=== PATIENT | male | born 1955 | race Caucasian/White ===

== ENCOUNTER → 2020-03-28 14:52 | Outpatient (BNVA) | payer MEDICARE, MEDICAID, SELFPAY | PROVIDERS: Family Provider Family Medicine; PCP Family Medicine; Visit Provider Specialist | DX: G40.909 Epilepsy, unspecified, not intractable, without status epilepticus (principal) | CPT/HCPCS: 99213 ==

== ENCOUNTER 2023-09-25 07:36 | Inpatient (IN) | payer MEDICARE, MEDICAID, SELFPAY ==
[2023-09-25] VITALS (11 sets, daily range): BP systolic 113–176; BP diastolic 66–95; PULSE 64–118; RESP 18–26; TEMP 36.6–37.3; O2SAT 83–94; BMI 35.9
--- NOTE | 2023-09-25 07:52 | CT_ITS ---
WS: [id number] CT HEAD NONCONTRAST HISTORY: AMS TECHNIQUE: Contiguous axial imaging performed through the brain in 2.5 mm imaging. Bone and soft tiss ue windows. Sagittal and coronal reformats reviewed. All CT scans at [facility] use at least one of these dose optimization techniques: automated exposure control; mA and/or kV adjustment per pa tient size (includes targeted exams where dose is matched to clinical indication); or iterative recon struction. DLP: 1164.18 mGy.cm COMPARISON: 05/17/2019 No acute intracranial hemorrhage, midline shift or mass effect. Moderate atrophy and small vessel ischemic disease. No prior infarct. Ventricles: Mild ventriculomegaly. No inferior displacement of the cerebellar tonsils. Paranasal sinuses: Mucoperiosteal thickening in the LEFT maxillary sinus. No air-fluid levels. Mastoid air cells: Well pneumatized. Calvarium and scalp: Skull is intact with no soft tissue edema or swelling. IMPRESSION: 1. No acute intracranial hemorrhage or edema. 2. Moderate atrophy and small vessel ischemic disease. 3. Mild ventriculomegaly on the basis of atrophy.
--- NOTE | 2023-09-25 07:52 | ECG_ITS ---
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 Measurements Intervals [place] Rate: 115 P: 12 GA: 170 QRS: -15 QRSD: 92 T: 17 QT: 344 QTc: 477 Interpretive Statements SINUS TACHYCARDIA LOW QRS VOLTAGE IN PRECORDIAL LEADS [QRS DEFLECTION < 1.0 mV IN CHEST LEADS] POSSIBLE ANTERIOR MYOCARDIAL INFARCTION , PROBABLY OLD [30 ms Q WAVE IN V3/V4, OR R < 0.2 mV IN V4] ABNORMAL RHYTHM ECG Compared to ECG 05/17/2019 20:01:17 Myocardial infarct finding now present Sinus bradycardia no longer present T-wave abnormality no longer present Possible ischemia no longer present Electronically Signed On 09-25-2023 16:03:17 SAMPLE WASHER by Man Zhang M.D. [email or web address] [email or web address] Pharmaceuticalscovenant medical center.[employer]/store/NU/[id number] pathak
--- NOTE | 2023-09-25 08:00 | W.ED.AMS ---
HPI - Altered Mental Status General: Chief Complaint: Altered Mental Status Stated Complaint: left leg pain, AMS Time Seen by Provider: 09/25/23 07:50 Source: patient Mode of arrival: ambulatory History of Present Illness: 68-year-old male presents emergency room complaining of bilateral lower extremity pain. Initially told the nurses he had left leg pain when I talk to his complaint of back pain and pain radiating down both legs. He states it has been chronic but worse lately. He also has bilateral leg swelling. EMS was initially called for a fall but when they came to see the patient he was sitting in a chair. He is tells me he is not normally on oxygen he has not required 3 L by nasal cannula to maintain oxygen sats in the low 90s. He denies fever. Denies chest pain or abdominal pain dysuria urgency or frequency he lives alone in an apartment. He does have a circuitry negative inspector that helps him occasionally. Symptoms began 3 to 4 days ago. MD complaint: altered mental status Onset (ago): day(s) (3-4) Severity: moderate Consistency of symptoms: Getting Worse Associated symptoms: Deny auditory hallucinations, visual hallucinations, delusions, depression, homicidal ideation, racing thoughts or suicidal ideation Review of Systems Const: Denies: fever(s) or chills Card: Denies: chest pain Resp: Denies: dyspnea GI: Denies: abdominal pain : Denies: dysuria, urinary frequency or urinary urgency Musc: Denies: neck pain or back pain Skin/Breast: Denies: rash Psych: Denies: depression, visual hallucinations, auditory hallucinations, suicidal ideation or homicidal ideation [facility] ED PFSH: Medical History Seizures H/O appendicitis Surgical History H/O foot surgery Family History Other CAD (coronary artery disease) Hypertension Physical Exam Const: COMMON NORMALS: no acute distress GENERAL APPEARANCE: cooperative and comfortable ORIENTATION/CONSCIOUSNESS: Yes awake HENMT: COMMON NORMALS: normocephalic, atraumatic and hearing grossly normal bilaterally HEAD & SCALP: normocephalic and atraumatic Resp: COMMON NORMALS: normal respiratory effort, No retractions, No use of accessory muscles and clear to auscultation bilaterally AUSCULTATION: clear to auscultation bilaterally Cardio: COMMON NORMALS: regular rate, regular rhythm and No murmurs present (Cardio) RATE: regular rate RHYTHM: regular rhythm GI: COMMON NORMALS: Soft to palpation and No hepatosplenomegaly present AUSCULTATION: Yes normoactive bowel sounds PALPATION: Yes Soft to palpation, No Tenderness to palpation present (GI), No Guarding due to palpation present (GI) and Yes No hepatosplenomegaly present Extremity: COMMON NORMALS: normal to inspection, capillary refill normal and no calf tenderness OTHER: 2+ edema lower extremities. Psych: THOUGHT CONTENT: No delusions Skin: COMMON NORMALS: no rashes or lesions noted GENERAL SKIN EXAM: no rashes or lesions noted Course Vital Signs: Vital signs: Vital Signs Temperature 98.5 F 09/25/23 12:41 Pulse Rate 109 H 09/25/23 12:41 Respiratory Rate 18 09/25/23 12:41 Blood Pressure 122/66 09/25/23 12:41 Pulse Oximetry 92 09/25/23 12:41 Oxygen Delivery Me thod Nasal Cannula 09/25/23 12:41 Oxygen Flow Rate 3 09/25/23 12:41 MDM - Altered Mental Status Medical Decision Making Labs and imaging reviewed. Patient requiring 3 L by nasal cannula. He has COVID and is also has a moderate right lower lobe pulmonary embolism is given Lovenox here discussed with hospitalist will admit Medical Records I reviewed the patient's medical records. Lab Data I reviewed the patient's lab results. 09/25/23 07:22 09/25/23 07:22 Laboratory Results WBC 12.06 10^3/uL (3.29-11.43) H 09/25/23 07:22 RBC 5.30 10^6/uL (3.85-5.65) 09/25/23 07:22 Hgb 14.70 g/dL (11.27-16.99) 09/25/23 07:22 Hct 44.6 % (37-53) 09/25/23 07:22 MCV 84.2 fl (82-101) 09/25/23 07:22 MCH 27.7 pg (27-33) 09/25/23 07:22 MCHC 33.0 g/dL (30-55) 09/25/23 07:22 RDW 14.1 % (12.1-15.1) 09/25/23 07:22 Plt Count 379 10^3/cmm (157-399) 09/25/23 07:22 MPV 9.8 fL (7.4-10.4) 09/25/23 07:22 Neut % (Auto) 78.0 % 09/25/23 07:22 Lymph % (Auto) 11.6 % 09/25/23 07:22 [place] % (Auto) 8.2 % 09/25/23 07:22 Eos % (Auto) 0.5 % 09/25/23 07:22 Baso % (Auto) 0.5 % 09/25/23 07:22 Neut # (Auto) 9.41 10^3/uL (1.8-7.7) H 09/25/23 07:22 Lymph # (Auto) 1.4 10^3/uL (0.8-4.8) 09/25/23 07:22 [place] # (Auto) 1.0 10^3/uL (0.2-0.9) H 09/25/23 07:22 Eos # (Auto) 0.1 10^3/uL (0.0-0.8) 09/25/23 07:22 Baso # (Auto) 0.1 10^3/uL (0.0-0.1) 09/25/23 07:22 Nucleated RBC % (auto) 0 % 09/25/23 07:22 Nucleated RBCs # 0.0 /100WBC 09/25/23 07:22 Sodium 135 mmol/L (136-145) L 09/25/23 07:22 Potassium 4.0 mmol/L (3.5-5.1) 09/25/23 07:22 Chloride 96 mmol/L (98-107) L 09/25/23 07:22 Carbon Dioxide 24 mmol/L (22-29) 09/25/23 07:22 Anion Gap 19.0 (5-19) 09/25/23 07:22 BUN 9 mg/dL (8-23) 09/25/23 07:22 Creatinine 0.8 mg/dL (0.7-1.2) 09/25/23 07:22 GFR Calculation 96.4 mL/min (90-130) 09/25/23 07:22 Glucose 154 mg/dL (65-115) H 09/25/23 07:22 Calculated Osmolality 282 mOsm/kg (285-295) L 09/25/23 07:22 Lactic Acid 3.5 mmol/L (0.5-2.2) H 09/25/23 07:22 Lactic Acid (Sepsis) 2.2 mmol/L (0.5-2.2) 09/25/23 09:50 Calcium 10.2 mg/dL (8.5-10.5) 09/25/23 07:22 Total Bilirubin 0.7 mg/dL (0.15-1.2) 09/25/23 07:22 AST 19 U/L (0-40) 09/25/23 07:22 ALT 17 U/L (0-41) 09/25/23 07:22 Alkaline Phosphatase 126 U/L (40-130) 09/25/23 07:22 Troponin T Baseline 13 ng/L (0-15) 09/25/23 07:22 Troponin T 120 Minute 15.49 ng/L (0-15) H 09/25/23 09:50 Delta Troponin T 2.49 ABS# (0-10) 09/25/23 09:50 NT-Pro-B Natriuret Pep < 36 pg/mL (0-125) 09/25/23 07:22 Total Protein 7.4 g/dL (6.6-8.7) 09/25/23 07:22 Albumin 4.0 g/dL (3.5-5.2) 09/25/23 07:22 Globulin 3.4 g/dL (1.3-4.6) 09/25/23 07:22 Lipase 25 U/L (13-60) 09/25/23 07:22 Urine Color Yellow (Yellow) 09/25/23 10:07 Urine Appearance Sl hazy (CLEAR) A 09/25/23 10:07 Urine pH 8 (5-7) H 09/25/23 10:07 Ur Specific [place] 1.015 (1.005-1.030) 09/25/23 10:07 Urine Protein Neg (Negative) 09/25/23 10:07 Urine Glucose (UA) Norm (Normal) 09/25/23 10:07 Urine Ketones Negative (Negative) 09/25/23 10:07 Urine Blood 2+ (Negative) H 09/25/23 10:07 Urine Nitrate Negative (Negative) 09/25/23 10:07 Urine Bilirubin Neg (Negative) 09/25/23 10:07 Prot Sulfosalicylic Acd Negative (Negative) 09/25/23 10:07 Urine Urobilinogen Norm mg/dL (Negative) 09/25/23 10:07 Ur Leukocyte Esterase Negative (Negative) 09/25/23 10:07 Urine RBC 0-4 /hpf (0-2) H 09/25/23 10:07 Urine WBC 0-4 /hpf (0-5) H 09/25/23 10:07 Ur Squamous Epith Cells 0-4 /hpf (0-5) H 09/25/23 10:07 Ur Transition Epith Cell 0-4 /hpf 09/25/23 10:07 Amorphous Sediment Not Reportable 09/25/23 10:07 Urine Bacteria Trace /hpf (NONE) 09/25/23 10:07 Urine Mucus None /hpf 09/25/23 10:07 Coronavirus 229E (PCR) Not detected (NOT DETECT) 09/25/23 09:03 Influenza Type A Ag Negative (Negative) 09/25/23 09:03 Influenza Type B Ag Negative (Negative) 09/25/23 09:03 SARS-CoV-2 (PCR) Detected (NOT DETECT) A 09/25/23 09:03 All radiology interpretation(s) finalized by discharge Discharge Plan Discharge Patient Disposition: Admitted As Inpatient Admit Provider: Gilberto Kam Clinical Impression: COVID-19, Pulmonary embolism Condition: Stable Coding Level of Care Code ED Sewing Machine Attachment Tester for Triston Vasquez
[2023-09-25 08:04] LABS: Basophils # 0.1 10^3/uL (0.0-0.1); Basophils % 0.5 %; Eosinophils # 0.1 10^3/uL (0.0-0.8); Eosinophils % 0.5 %; Hematocrit 44.6 % (37-53); Lymphocytes # 1.4 10^3/uL (0.8-4.8); Lymphocytes % 11.6 %; Mean Corpuscular Hemoglobin 27.7 pg (27-33); Mean Corpuscular Volume 84.2 fl (82-101); Mean Platelet Volume 9.8 fL (7.4-10.4); Monocytes % 8.2 %; Neutrophils # 9.41 10^3/uL (1.8-7.7); Nucleated Red Blood Cells % 0 %; Platelet Count 379 10^3/cmm (157-399); Red Cell Distribution Width 14.1 % (12.1-15.1); White Blood Count 12.06 10^3/uL (3.29-11.43)
--- NOTE | 2023-09-25 08:07 | USCV_ITS ---
Triston Ryan Age: 68 Gender: M : 1955 Exam Date: 09/25/2023 08:30 Ordering Phys: Alberto Farmer DO Technologist: KIAN Exam Location: [facility] [place] Indication: LE Pain HISTORY: Lower extremity pain. PROCEDURES: Venous duplex imaging was performed in bilateral lower extremities. The following venous structures were evaluated: common femoral vein, profunda vein, proximal portion of the greater saphenous vein, superficial femoral vein, and the popliteal vein. In addition, the posterior tibial and peroneal trunk were evaluated. Serial compression, augmentation maneuvers, and spectral Doppler flow evaluation were performed. FINDINGS: Normal 2-D Doppler and augmentation and compressibility throughout the lower extremity venous structures. Additional imaging through the proximal calf veins also reveals no thrombus. Limited evaluation of the greater saphenous vein is patent with no thrombus. CONCLUSIONS No DVT bilateral lower extremities. Dr. Veronika Lewis DO (Electronically Signed) Final Date: 25 September 2023 10:18 S
[2023-09-25 08:21] LABS: Alanine Aminotransferase 17 U/L (0-41); Alkaline Phosphatase 126 U/L (40-130); Aspartate Amino Transferase 19 U/L (0-40); Blood Urea Nitrogen 9 mg/dL (8-23); Calcium 10.2 mg/dL (8.5-10.5); Carbon Dioxide 24 mmol/L (22-29); Chloride 96 mmol/L (98-107); Globulin 3.4 g/dL (1.3-4.6); Glomerular Filtration Rate 96.4 mL/min (90-130); Glucose 154 mg/dL (65-115); Lactic Sepsis W/Reflex 3.5 mmol/L (0.5-2.2); Lipase 25 U/L (13-60); Osmolality Calculated 282 mOsm/kg (285-295); Sodium 135 mmol/L (136-145); Total Bilirubin 0.7 mg/dL (0.15-1.2); Total Protein 7.4 g/dL (6.6-8.7); Troponin(5th) Baseline 13 ng/L (0-15)
--- NOTE | 2023-09-25 08:33 | XR_ITS ---
WS: [id number] Portable AP upright chest, 09/25/2023 Clinical Data: dyspnea/cough Comparison: None. Findings: No nodules, masses or effusions are seen. The heart is enlarged. The pulmonary vascularity is not increased. No pneumonia or pneumothorax is seen. There are calcified granulomas in both lungs. The right diaphragm is elevated. There are monitor leads on the chest wall. Impression: 1. Poor inspiratory effort with elevation of the right diaphragm. 2. Cardiomegaly.
[2023-09-25] MEDS: ondansetron 2 mg/ML SDV 2 mL 4 MG IVP (08:45)
[2023-09-25] MEDS: morphine 4 mg/mL SDV 1 mL IVP (08:45)
[2023-09-25 08:46] LABS: NT Pro B Type Natriuretic Pept < 36 pg/mL (0-125)
--- NOTE | 2023-09-25 08:48 | XR_ITS ---
WS: [id number] Left hip, AP and frog-leg views, 09/25/2023 Clinical Data: pain Comparison: None. Findings: No fractures or dislocations are seen. The hip joint shows no erosion, sclerosis, narrowing, cyst for mation or fragmentation of the left femoral head. The soft tissues are not remarkable. The adjacent p dina is normal. There is a monitor lead over the left side of the pelvis. The detail of the hip is obscured by the pa tient's tissue. Impression: Negative left hip. Tonnis classification: grade 0: normal radiographs
--- NOTE | 2023-09-25 08:48 | XR_ITS ---
WS: [email or web address] Left knee, 3 views, 09/25/2023 Clinical Data: pain Comparison: None. Findings: No fractures or dislocations are seen. The joint spaces are normal. The patella is intact. The soft t issues are unremarkable. Impression: Negative left knee.
--- NOTE | 2023-09-25 08:48 | XR_ITS ---
WS: [id number] Left ankle, 3 views, 09/25/2023 Clinical Data: pain Comparison: None. Findings: No fractures or dislocations are seen. The ankle mortise shows irregularity and narrowing. There is s oft tissue swelling over the medial and lateral malleolus. Impression: 1. 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 2. Soft tissue swelling over medial and lateral malleolus.
[2023-09-25] MEDS: sodium chloride 0.9% 500 ML 999 ML IV (09:10)
[2023-09-25 09:47] LABS: Reflex Lactate Order REFLEX LACTIC ORDERD
--- NOTE | 2023-09-25 09:53 | ECG_ITS ---
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 Measurements Intervals [place] Rate: 105 P: 8 TN: 169 QRS: -14 QRSD: 98 T: 19 QT: 332 QTc: 440 Interpretive Statements SINUS TACHYCARDIA LOW QRS VOLTAGE IN PRECORDIAL LEADS [QRS DEFLECTION < 1.0 mV IN CHEST LEADS] POSSIBLE ANTERIOR MYOCARDIAL INFARCTION , PROBABLY OLD [30 ms Q WAVE IN V3/V4, OR R < 0.2 mV IN V4] ABNORMAL RHYTHM ECG Compared to ECG 09/25/2023 07:52:26 No significant changes Electronically Signed On 09-27-2023 23:32:19 TAX SERVICES PROFESSIONAL by Man Zhang M.D. [email or web address] [email or web address] [email or web address] [email or web address] community [email or web address]/store/OM/[id number]
[2023-09-25 10:03] LABS: Influenza A by IFA Negative (Negative); Influenza B by IFA Negative (Negative)
[2023-09-25] MEDS: levofloxacin-dextrose 5 % 750 MG/150 ML PREMIX 100 MG IV (10:23)
[2023-09-25 10:24] LABS: Troponin 5 2HR 15.49 ng/L (0-15); Troponin 5 2HR Delta 2.49 ABS# (0-10)
--- NOTE | 2023-09-25 10:25 | CT_ITS ---
WS: [id number] CT CHEST ANGIOGRAPHY WITH REFORMATS HISTORY: hypoxiua/tachycardia TECHNIQUE: Contiguous axial images are obtained through the chest during arterial injection of intrav enous contrast. Images are reconstructed to evaluate the pulmonary arteries. MIP imaging also reviewe d. All CT scans at [facility] use at least one of these dose optimization techniques: automat ed exposure control; mA and/or kV adjustment per patient size (includes targeted exams where dose is matched to clinical indication); or iterative reconstruction. CONTRAST: Omnipaque 350; 100 mL IV. DLP: 517.97 mGy.cm COMPARISON: None available. Limited evaluation of the pulmonary arteries. There is motion artifact. No central filling defects ar e identified. Incomplete filling defects are identified in the segmental and extending into the subse gmental branches of the RIGHT lower lobe. No additional emboli identified. There is significant breathing and motion artifact. Mild dependent changes. No pneumonia. No effusion . Mild cardiomegaly with no RIGHT heart strain. Mild atherosclerosis aorta. No mediastinal or hilar a denopathy. No adrenal mass. Fatty replacement of the pancreas. IMPRESSION: 1. Mild pulmonary embolic burden in the RIGHT lower lobe segmental and subsegmental branches. No ana luisa tral pulmonary embolism. 2. Quality of the study is limited by breathing motion artifact. 3. No adenopathy and no pneumonia.
[2023-09-25 10:34] LABS: Lactic Acid level (Lactate) 2.2 mmol/L (0.5-2.2)
[2023-09-25 11:02] LABS: Add Urine Microscopic? YES; Bilirubin Urine Neg (Negative); Blood Urine 2+ (Negative); Glucose Urine UA Norm (Normal); Ketones Urine Negative (Negative); Leukocyte Esterase Urine Negative (Negative); Nitrate Urine Negative (Negative); Protein Urine Neg (Negative); Specific Gravity, Urine 1.015 (1.005-1.030); Sulfosalicylic Acid Urine Negative (Negative); Urine Appearance SL Hazy (CLEAR); Urine Color Yellow (Yellow); Urobilinogen Urine Norm (Negative); pH Urine 8 (5-7)
[2023-09-25 11:06] LABS: Add Urine Culture? No; Bacteria Urine TRACE /hpf; RBC Urine 0-4 /hpf (0-2); Squamous Epithelial Cell Urine 0-4 /hpf (0-5); Transitional Epi Cells Urine 0-4 /hpf; WBC Urine 0-4 /hpf (0-5)
[2023-09-25 11:08] LABS: Adenovirus Not Detected (NOT DETECT); Chlamydia Pneumoniae Not Detected (NOT DETECT); Coronavirus 229E,HKU1,NL63,OC4 Not Detected (NOT DETECT); Human Metapneumovirus Not Detected (NOT DETECT); Human Rhinovirus/Enterovirus Not Detected (NOT DETECT); Influenza A Not Detected (NOT DETECT); Influenza A H1 Not Detected (NOT DETECT); Influenza A H1-2009 Not Detected (NOT DETECT); Influenza A H3 Not Detected (NOT DETECT); Influenza B Not Detected (NOT DETECT); Mycoplasma Pneumoniae Not Detected (NOT DETECT); Parainfluenza Virus Type 1 Not Detected (NOT DETECT); Parainfluenza Virus Type 2 Not Detected (NOT DETECT); Parainfluenza Virus Type 3 Not Detected (NOT DETECT); Parainfluenza Virus Type 4 Not Detected (NOT DETECT); Respiratory Syncytial Virus A Not Detected (NOT DETECT); Respiratory Syncytial Virus B Not Detected (NOT DETECT)
[2023-09-25] MEDS: iohexol 350 mg/mL 500 mL Btl (per mL) IV (11:11)
[2023-09-25 11:22] LABS: SARS-COV-2 Detected (NOT DETECT)
[2023-09-25] MEDS: enoxaparin 120 mg/0.8 mL Syringe 110 MG SUBCUT ×2 (11:52→15:28)
--- NOTE | 2023-09-25 12:16 | PC.NURSE ---
PATIENT FOUND AT EDGE OF BED MULTIPLE TIMES. PATIENT RE-EDUCATED TO USE ALL LIGHT. PATIENT BECOMES SOB AND RESPIRATIONS INCREASE TO 35 WHEN EXERTING HIMSELF. PATIENT IS ABLE TO STAND AT BEDSIDE. PATIENT MADE COMFORTABLE IN BED.
--- NOTE | 2023-09-25 12:35 | P.HP_ITS ---
Documented by User: Tonie Villalpando [facility] 09/25/23 14:32 Providers/Chief Complaint 2 Admitting Physician: Gilberto Kam MD Primary Care Provider: Ann Marie Maurer MD Chief Complaint: left leg pain, AMS History of Present Illness Triston Ryan is a 68 year old male with past medical history of hypertension, GERD, hyperlipidemia and seizure disorder who presents to the emergency department with a chief complaint of bilateral lower leg pain and shortness of breath. Patient initially called EMS due to a fall but when EMS arrived patient was noted to be sitting in a chair and short of breath. He is usually not on oxygen but currently requiring 3 L nasal cannula. While evaluating patient in the emergency department, he was not able to answer any questions for me. Mr. Ryan continued to repeat, It hurts, it hurts. Patient noted to be visually uncomfortable, laying back and then sitting forward multiple times while attempting to interview patient. No family noted to be at bedside at this time. Patient heart rate noted to be elevated at this time, around 130s. While in the Emergency Department patient received Zofran 4mg IVP, Morphine 4mg IVP, Levofloxacin 750mg IV , Lovenox 110mg, 500mL NS bolus. CBC, CMP, UA, COVID, FLU swab, and blood cultures was obtained. Venous duplex, chest x-ray, left ankle x-ray, left hip/pelvis x-ray, left knee x-ray, head CT, and chest CTA were taken. Medications/Allergies Home Medications Medication Instructions Recorded Confirmed Last Taken Type atorvastatin 80 mg tablet 80 mg PO DAILY 03/28/20 09/25/23 Unknown History docusate sodium 100 mg capsule 100 mg PO BID 03/28/20 09/25/23 Unknown History metoprolol succinate 50 mg 50 mg PO DAILY 03/28/20 09/25/23 Unknown History tablet,extended release 24 hr pantoprazole 40 mg tablet,delayed 40 mg PO DAILY 03/28/20 09/25/23 Unknown History release polyethylene glycol 3350 17 17 gm PO DAILY 03/28/20 09/25/23 Unknown History gram/dose oral powder (Miralax) lamotrigine 200 mg tablet 200 mg PO BID #60 tabs 09/11/20 09/25/23 Unknown Rx furosemide 40 mg tablet 40 mg PO DAILY 09/25/23 09/25/23 Unknown History ibuprofen 800 mg tablet 800 mg PO BEDTIME Pain 09/25/23 09/25/23 Unknown History potassium chloride 20 mEq 20 meq PO BID 09/25/23 09/25/23 Unknown History tablet,extended release(part/cryst) Allergies Allergy/AdvReac Type Severity Reaction Status Date / Time levetiracetam [From Keppra] Allergy Unknown Unknown Verified 11/12/19 13:52 PFSH Acute 2 PFSH: Medical History (Updated 09/25/23 @ 13:47 by Gilberto Kam MD) Seizure disorder GERD (gastroesophageal reflux disease) Hypertension Hyperlipidemia Seizures H/O appendicitis Surgical History History of appendectomy H/O foot surgery Family History Other CAD (coronary artery disease) Hypertension Social History (Updated 09/25/23 @ 13:47 by Gilberto Kam MD) Smoking and tobacco/nicotine status: never used tobacco/nicotine Alcohol intake: never Vitals/I&O/Wt Last Vital Signs Temp 98.3 F 09/25/23 07:37 Pulse 64 09/25/23 12:17 Resp 18 09/25/23 12:17 BP 135/77 09/25/23 11:09 Pulse Ox 83 L 09/25/23 12:17 O2 Del Method Nasal Cannula 09/25/23 12:17 O2 Flow Rate 3 09/25/23 12:17 09/24/23 09/25/23 09/25/23 22:59 06:59 14:59 Intake Total 650 / 650 Balance 650 / 650 Weight last 48 hrs Weight 250 lb Physical Exam 2 Narrative: General exam: White male on 3 L NC of oxygen reporting his left extremity hurts. HEENT: Atraumatic and normocephalic. Pupils equally round. Oropharynx clear. Neck is supple. Cardiovascular elevated rate, rhythm, no murmur Lungs: coarse breath sounds bilaterally. No wheezing Abdomen is soft, round, positive bowel sounds. exam is deferred Extremities show 2+ edema bilaterally. No clubbing, no cyanosis. Skin see findings above Neuro: slow to respond. Data 09/25/23 07:22 09/25/23 07:22 Other Labs: WBC 12.06, Neut 9.41 Lactic acid 3.5 COVID positive LFTs WNL BNP WNL BUN and Monotype Operator WNL Chest CTA: Mild pulmonary embolic burden in the RIGHT lower lobe segmental and subsegmental branches. No central pulmonary embolism. 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 A&P Assessment and plan (1) Pulmonary embolism: Titrate oxygen as required Lovenox 110mg sub q BID Cardiac monitoring (2) COVID-19: Remdisver IV ordered. Donebs Q6 HR PRN Decadron IVP 6mg dly Oxygen as needed (3) Leg pain: Arterial duplex ordered to rule out any narrowing of vessels. CK ordered to rule out rhabdomyolysis. Pain management (4) Acute hypoxemic respiratory failure: Currently requiring 3L NC, does not usually wear oxygen at home. This is new for patient, continue to titrate oxygen as needed. Monitor closely. (5) Mild dehydration: IVF NS ordered at 75ml/hr , continue to monitor. CBC, CMP in AM Mag ordered Encourage oral hydration. (6) Acute encephalopathy: Patient slightly confused, has trouble communicating. When Dr. Kam spoke with sister on phone she stated that he normally responds slower when communicating with people. TSH ordered. Continue to monitor closely Coding Level of Care Code 61032 Diagnoses Pulmonary embolism I26.99 COVID-19 U07.1 Leg pain M79.606 Acute hypoxemic respiratory failure J96.01 Mild dehydration E86.0 Acute encephalopathy G93.40 Time Spent (min) 53 Documented by User: Gilberto Kam MD 09/25/23 14:36 Providers/Chief Complaint 2 Chief Complaint: left leg pain, AMS History of Present Illness Triston Ryan is a 68 year old male with past medical history of hypertension, GERD, hyperlipidemia and seizure disorder who presents to the emergency department with a chief complaint of bilateral lower leg pain and shortness of breath. Patient initially called EMS due to a fall but when EMS arrived patient was noted to be sitting in a chair and short of breath. He is usually not on oxygen but currently requiring 3 L nasal cannula. While evaluating patient in the emergency department, he was not able to answer any questions for me. Mr. Ryan continued to repeat, It hurts, it hurts. Patient noted to be visually uncomfortable, laying back and then sitting forward multiple times while attempting to interview patient. No family noted to be at bedside at this time. Patient heart rate noted to be elevated at this time, around 130s. While in the Emergency Department patient received Zofran 4mg IVP, Morphine 4mg IVP, Levofloxacin 750mg IV , Lovenox 110mg, 500mL NS bolus. CBC, CMP, UA, COVID, FLU swab, and blood cultures was obtained. Venous duplex, chest x-ray, left ankle x-ray, left hip/pelvis x-ray, left knee x-ray, head CT, and chest CTA were taken. I interviewed the patient as well. He was able to relate that he is having some leg pain. He cannot relate how long he has been ill. He was able to call his sister, while he was in the room. She indicates that he has mental slowness, has difficulty communicating his needs and wants, he is able to take care of basic needs. She is wondered if he is needed to be in a nursing facility/residential care for some time. She is not aware of how long he has been ill at this time either. Review of Systems 2 General: Reports: ROS unobtainable due to mental status Medications/Allergies Home Medications Medication Instructions Recorded Confirmed Last Taken Type atorvastatin 80 mg tablet 80 mg PO DAILY 03/28/20 09/25/23 Unknown History docusate sodium 100 mg capsule 100 mg PO BID 03/28/20 09/25/23 Unknown History metoprolol succinate 50 mg 50 mg PO DAILY 03/28/20 09/25/23 Unknown History tablet,extended release 24 hr pantoprazole 40 mg tablet,delayed 40 mg PO DAILY 03/28/20 09/25/23 Unknown History release polyethylene glycol 3350 17 17 gm PO DAILY 03/28/20 09/25/23 Unknown History gram/dose oral powder (Miralax) lamotrigine 200 mg tablet 200 mg PO BID #60 tabs 09/11/20 09/25/23 Unknown Rx furosemide 40 mg tablet 40 mg PO DAILY 09/25/23 09/25/23 Unknown History ibuprofen 800 mg tablet 800 mg PO BEDTIME Pain 09/25/23 09/25/23 Unknown History potassium chloride 20 mEq 20 meq PO BID 09/25/23 09/25/23 Unknown History tablet,extended release(part/cryst) Allergies Allergy/AdvReac Type Severity Reaction Status Date / Time levetiracetam [From [facility]] Allergy Unknown Unknown Verified 11/12/19 13:52 PFSH Acute 2 PFSH: Medical History (Updated 09/25/23 @ 13:47 by Gilberto Kam MD) Seizure disorder GERD (gastroesophageal reflux disease) Hypertension Hyperlipidemia Seizures H/O appendicitis Surgical History History of appendectomy H/O foot surgery Family History Other CAD (coronary artery disease) Hypertension Social History (Updated 09/25/23 @ 13:47 by Gilberto Kam MD) Smoking and tobacco/nicotine status: never used tobacco/nicotine Alcohol intake: never Physical Exam 2 Narrative: General exam: White male on 3 L NC of oxygen reporting his left extremity hurts. HEENT: Atraumatic and normocephalic. Pupils equally round. Oropharynx clear. Mucous membranes significantly dry Neck is supple. Cardiovascular elevated rate, rhythm, no murmur Lungs: coarse breath sounds bilaterally. No wheezing Abdomen is soft, round, positive bowel sounds. exam is deferred Extremities show 2+ edema bilaterally. No clubbing, no cyanosis. Ichthyosis is noted Skin see findings above Neuro: slow to respond. No obvious focal deficits Data 09/25/23 07:22 09/25/23 07:22 Other Labs: WBC 12.06, Neut 9.41 Lactic acid 3.5 COVID positive LFTs WNL BNP WNL BUN and Monotype Operator WNL Chest CTA: Mild pulmonary embolic burden in the RIGHT lower lobe segmental and subsegmental branches. No central pulmonary embolism. 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 Troponin 13 with repeat 50 Chest x-ray reviewed by me demonstrates likely cardiomegaly, poor inspiration. This was reviewed by me. Head CT no acute findings Venous duplex no DVT Blood cultures were drawn EKG demonstrates sinus tachycardia left axis deviation rate around 115. Poor R wave progression is noted. A&P Assessment and plan (1) Pulmonary embolism: Titrate oxygen as required Lovenox 110mg sub q BID Cardiac monitoring Echocardiogram to check for RV strain Transition to apixaban when appropriate (2) COVID-19: Remdisver IV ordered. Duonebs Q6 HR PRN Decadron IVP 6mg dly Oxygen as needed CRP in the morning (3) Leg pain: Arterial duplex ordered to rule out any narrowing of vessels. CK ordered to rule out rhabdomyolysis. Pain management Oxycodone as needed (4) Acute hypoxemic respiratory failure: Currently requiring 3L NC, does not usually wear oxygen at home. This is new for patient, continue to titrate oxygen as needed. Monitor closely. Secondary to COVID (5) Mild dehydration: IVF NS ordered at 75ml/hr , continue to monitor. CBC, CMP in AM Mag ordered Encourage oral hydration. Reassess need for IV fluids tomorrow (6) Acute encephalopathy: Patient slightly confused, has trouble communicating. When Dr. Kam spoke with sister on phone she stated that he normally responds slower when communicating with people. TSH ordered. Continue to monitor closely Consistent with acute metabolic encephalopathy secondary to COVID. Plan Other medical problems as outlined in past medical history Full code Lovenox will suffice for DVT prophylaxis Attestations 2 Medical Necessity Statement*: Will need greater than 2 midnight stay for evaluation treatment of COVID, hypoxia, pulmonary embolism Diagnoses Pulmonary embolism I26.99 COVID-19 U07.1 Leg pain M79.606 Acute hypoxemic respiratory failure J96.01 Mild dehydration E86.0 Acute encephalopathy G93.40 Time Spent (min) 53
[2023-09-25] MEDS: sodium chloride 0.9% 1,000 ML 100 ML IV (13:27)
--- NOTE | 2023-09-25 13:53 | ECG_ITS ---
[facility] Test Date: 2023-09-25 Pat Name: Triston Ryan Department: Room: 268 Gender: Male Insolvency Practitioner: : 1955 Requested By: Alberto Boles Order Number: [id number] Seth MD: Man Zhang M.D. Measurements Intervals Tiger Rate: 99 P: -4 KS: 152 QRS: -3 QRSD: 99 T: 39 QT: 325 QTc: 417 Interpretive Statements SINUS RHYTHM WITH MARKED SINUS ARRHYTHMIA LOW QRS VOLTAGE IN PRECORDIAL LEADS [QRS DEFLECTION < 1.0 mV IN CHEST LEADS] POSSIBLE ANTERIOR MYOCARDIAL INFARCTION , PROBABLY OLD [30 ms Q WAVE IN V3/V4, OR R < 0.2 mV IN V4] Compared to ECG 09/25/2023 09:55:25 Sinus tachycardia no longer present Myocardial infarct finding still present Electronically Signed On 09-27-2023 23:29:12 FUR SORTER by Man Zhang M.D. [id number]
--- NOTE | 2023-09-25 14:08 | USR_ITS ---
PROCEDURE INFORMATION: Exam: US Duplex Left Lower Extremity Arteries Or Arterial Bypass Grafts Exam date and time: 09/25/2023 4:15 PM Age: 68 years old Clinical indication: Pain; Leg, lower; Left TECHNIQUE: Imaging protocol: Left Real-time duplex scan of the arteries or arterial bypass grafts of the left lower extremity with 2-D cannon scale, color Doppler flow and spectral waveform analysis. Images documented and saved. COMPARISON: CR XR knee LT 3V* [id number] 09/25/2023 9:12 AM FINDINGS: Left common femoral artery: No occlusion or significant stenosis. Normal waveform. Left superficial femoral artery: No occlusion or significant stenosis. Normal waveform. Left popliteal artery: No occlusion or significant stenosis. Normal waveform. Left calf/foot arteries: No occlusion or significant stenosis in the visualized arteries. Normal waveforms. Dorsalis pedis artery [place]. US/[place] [id number] IMPRESSION: No stenosis or occlusion.
[2023-09-25 14:13] LABS: Troponin 5 6HR 19.23 ng/L (0-15); Troponin 5 6HR Delta 6.23 ng/L (0-12)
[2023-09-25 14:50] LABS: Creatine Phosphokinase 65 U/L (39-308)
[2023-09-25 15:19] LABS: C Reactive Protein 15.4 mg/L (0.0-4.9)
[2023-09-25] MEDS: dexamethasone 10 mg/mL INJ 6 MG IVP (15:27)
[2023-09-25] MEDS: remdesivir 200 MG in sodium chloride 0.9% (100 ml) 60 ML 100 MG IV (15:28)
[2023-09-25] MEDS: lamoTRIgine 100 mg Tablet 200 MG PO (16:58)
[2023-09-25] MEDS: docusate sodium 100 mg Capsule PO (16:58)
[2023-09-25] MEDS: ipratropium-albuterol 3 mL Neb INHALATION (20:31)
[2023-09-26] VITALS (7 sets, daily range): BP systolic 111–137; BP diastolic 66–76; PULSE 69–103; RESP 17–20; TEMP 36.3–37.2; O2SAT 91–95
[2023-09-26] MEDS: enoxaparin 120 mg/0.8 mL Syringe 110 MG SUBCUT ×2 (02:33→14:56)
[2023-09-26] MEDS: sodium chloride 0.9% 1,000 ML 100 ML IV (02:34)
[2023-09-26 05:58] LABS: Basophils % 0.3 %; Hematocrit 39.2 % (37-53); Lymphocytes # 1.7 10^3/uL (0.8-4.8); Lymphocytes % 19.1 %; Mean Corpuscular HGB Conc 32.7 g/dL (30-55); Mean Corpuscular Hemoglobin 28.1 pg (27-33); Mean Corpuscular Volume 86.2 fl (82-101); Mean Platelet Volume 9.4 fL (7.4-10.4); Monocytes # 1.1 10^3/uL (0.2-0.9); Monocytes % 11.8 %; Neutrophils # 6.08 10^3/uL (1.8-7.7); Neutrophils % 67.6 %; Nucleated Red Blood Cells % 0 %; Platelet Count 296 10^3/cmm (157-399); Red Blood Count 4.55 10^6/uL (3.85-5.65); Red Cell Distribution Width 14.4 % (12.1-15.1)
[2023-09-26 06:21] LABS: Alanine Aminotransferase 15 U/L (0-41); Albumin Level 3.3 g/dL (3.5-5.2); Alkaline Phosphatase 105 U/L (40-130); Anion Gap 14.4 (5-19); Aspartate Amino Transferase 34 U/L (0-40); Blood Urea Nitrogen 11 mg/dL (8-23); Calcium 9.2 mg/dL (8.5-10.5); Carbon Dioxide 24 mmol/L (22-29); Chloride 103 mmol/L (98-107); Globulin 3.4 g/dL (1.3-4.6); Glomerular Filtration Rate 96.4 mL/min (90-130); Glucose 140 mg/dL (65-115); Magnesium 2.1 mg/dL (1.7-2.3); Osmolality Calculated 286 mOsm/kg (285-295); Potassium 4.4 mmol/L (3.5-5.1); Sodium 137 mmol/L (136-145); Total Bilirubin 0.5 mg/dL (0.15-1.2); Total Protein 6.7 g/dL (6.6-8.7)
[2023-09-26 06:26] LABS: C Reactive Protein 47.2 mg/L (0.0-4.9)
[2023-09-26] MEDS: perflutren protein-a microsphr 0.22 mg/mL SDV 3 mL IV (06:47)
[2023-09-26 08:48] LABS: Procalcitonin 0.08 ng/mL (0-0.5)
--- NOTE | 2023-09-26 08:52 | P.PN_ITS ---
Subjective 2 Subjective: Triston reports he is feeling a little bit better. His responses are quicker. He does not appear short of breath as he was yesterday. He denies any chest pain. He did have a Villalobos put in, secondary to urinary retention. Medications: Reviewed: Yes Vitals/I&O/Wt Last Vital Signs Temp 98.3 F 09/26/23 07:08 Pulse 78 09/26/23 07:08 Resp 18 09/26/23 04:00 BP 121/67 09/26/23 07:08 Pulse Ox 91 09/26/23 07:08 O2 Del Method Nasal Cannula 09/25/23 22:09 O2 Flow Rate 2 09/25/23 22:09 09/25/23 09/26/23 09/26/23 22:59 06:59 14:59 Intake Total 580 / 1230 1000 / 2230 480 / 480 Output Total 325 / 325 900 / 1225 Balance 255 / 905 100 / 1005 480 / 480 Weight last 48 hrs Weight 116.936 kg Weight 113.398 kg Weight 113.398 kg Physical Exam 2 Narrative: General exam no distress, oxygen down to 2 L Neck is supple Cardiovascular regular rate and rhythm Lungs diminished breath sounds but clear Abdomen is soft Extremities no cyanosis clubbing or edema Urinary Catheter Management: Villalobos: Cath Placed During This Visit: yes Reason for Continuing Indwelling Catheter: Acute Urinary Retention or Obstruction Urinary Catheter Date of Insertion: 09/25/23 Urinary Catheter Time of Insertion: 18:32 Data 09/26/23 05:28 09/26/23 05:28 Other Labs: Procalcitonin 0.08 A&P Assessment and plan (1) Pulmonary embolism: Continue to wean oxygen as tolerated Lovenox 110mg sub q BID. Likely convert to oral tomorrow Continue cardiac monitoring Awaiting echocardiogram to check for RV strain (2) COVID-19: Continue remdesivir Duonebs Q6 HR PRN Decadron IVP 6mg dly Oxygen as needed Incentive spirometry Dexamethasone 6 mg IV every 24 hours No evidence of concomitant bacterial pneumonia. I have not continued Levaquin that he received in the emergency department (3) Leg pain: Arterial duplex ordered to rule out any narrowing of vessels. This did not demonstrate any significant stenosis CK ordered to rule out rhabdomyolysis. This was normal Pain management pain resolved this morning Oxycodone as needed (4) Acute hypoxemic respiratory failure: Currently requiring 3L NC, does not usually wear oxygen at home. This is new for patient, continue to titrate oxygen as needed. Monitor closely. Secondary to COVID Wean oxygen as tolerated (5) Mild dehydration: Resolved. Discontinue IV fluids (6) Acute encephalopathy: Patient slightly confused, has trouble communicating. When Dr. Kam spoke with sister on phone she stated that he normally responds slower when communicating with people. TSH ordered. Continue to monitor closely Consistent with acute metabolic encephalopathy secondary to COVID. This is now resolved Plan Other medical problems as outlined in past medical history Full code Lovenox will suffice for DVT prophylaxis Attestations 2 Medical Necessity Statement*: Needs continued hospitalization for close monitoring for pulmonary embolism, and continue treatment of COVID while trying to wean the patient's oxygen down. Full code Lovenox will suffice for DVT prophylaxis Diagnoses Pulmonary embolism I26.99 COVID-19 U07.1 Leg pain M79.606 Acute hypoxemic respiratory failure J96.01 Mild dehydration E86.0 Acute encephalopathy G93.40 Time Spent (min) 25
[2023-09-26] MEDS: atorvastatin 40 mg Tablet PO (09:46)
[2023-09-26] MEDS: docusate sodium 100 mg Capsule PO ×2 (09:46→17:07)
[2023-09-26] MEDS: metoprolol succinate ER (24 HR) 50 mg Tablet PO (09:46)
[2023-09-26] MEDS: lamoTRIgine 100 mg Tablet 200 MG PO ×2 (09:46→17:06)
[2023-09-26] MEDS: tamsulosin 0.4 mg Capsule PO (09:46)
[2023-09-26] MEDS: pantoprazole DR 40 mg Tablet PO (09:46)
--- NOTE | 2023-09-26 11:00 | PC.CHAP ---
Pastoral Care Encounter/Spiritual Assessment Type of Contact [] Declined engineering and development director visit [] Patient/Family/Request visit [] Outpatient visit [] Follow-up visit [] Physician referral [] Code/Alert [x] Routine visit [] Staff referral [] Actively dying [] Patient sleeping [] Family support [] [] Out of room [] Palliative care [] [] Receiving care in room [] Pre-surgical visit [] Trauma [] Long length of stay [] ICU visit [] Other: Relational/Emotional Strength [x] Patient feels connected with others/family/visitors/staff [] Distress [] Loneliness/isolation [] Abandonment Spirituality of Patient [x] Person of Tanesha [] Attends Synagogue of their Tanesha [x] Believes in Prayer [] Reads Bible or Confucianist materials [] There are Spiritual issues to be addressed Patient Financial Specialist Interventions [x] Prayer [x] Active listening [] Non-anxious presence [x] Spiritual/emotional support [] Crisis/trauma care [] Spiritual counseling [] Bereavement support [] Provided bereavement packet [] Provided Bible/devotional materials [] Provided toy/stuffed animal, coloring book to patient or family member [] Provided Communion [] Anointing/Ware [] Salvation [x] Completed spiritual assessment [] Other: Impact on Illness or Injury [] Angry [] Fearful [] Anxious [] Often cries [] Exhaustion [] Unable to work [] Unable to attend restoration [] Unable to walk/stand [] Unable to read [] Unable to drive [] Unable to eat/drink [] Unable to sleep [] Unable to be with family [] Patient intubated [] Other: Summary Time spent with patient 5 min
[2023-09-26] MEDS: nicotine 21 mg Patch 1 PATCH TRANSDERMA (11:26)
--- NOTE | 2023-09-26 14:33 | USCV_ITS ---
Triston Ryan Age: 68 Gender: M : 1955 Exam Date: 09/26/2023 03:59 Ordering Phys: Gilberto Kam MD Technologist: ANISH Exam Location: [facility] [place] Indication: order says PE Patient is unresponsive. No other history is available. BP: 126 / 69 HR: 76 Rhythm: Sinus Technical Quality: Fair with [employer] MEASUREMENTS (Male / Female) Normal Values 2D ECHO LV Diastolic Diameter PLAX 4.3 cm 4.2 - 5.9 / 3.9 - 5.3 cm LV Systolic Diameter PLAX 2.9 cm IVS Diastolic Thickness 1.3 cm 0.6 - 1.0 / 0.6 - 0.9 cm IVS Systolic Thickness 2.0 cm LVPW Diastolic Thickness 1.6 cm 0.6 - 1.0 / 0.6 - 0.9 cm LVPW Systolic Thickness 1.6 cm LVOT Diameter 1.9 cm LV Ejection Fraction 2D Teich 60.5 % LV Ejection Fraction MOD 2C 56.6 % LV Ejection Fraction 2C AL 57.5 % LA Diameter 4.5 cm LA Width 4.3 cm LA Height 4.9 cm RA Width 3.6 cm RA Height 5.0 cm Aorta at Sinotubular Diameter 3.5 cm IVC Diameter 1.6 cm M-MODE Aortic Annulus Diameter 3.0 cm LA Ao Ratio MM 1.6 MV E Point Septal Separation 0.2 cm DOPPLER AV Peak Velocity 141.0 cm/s LVOT Peak Velocity 55.0 cm/s AV Area Cont Eq vti 1.2 cm squared AV Area Cont Eq pk 1.1 cm squared MV Peak Velocity 92.0 cm/s MV Area PHT 3.9 cm squared Mitral E to A Ratio 1.0 MV E' Velocity 42.0 cm/s Mitral E to MV E' Ratio 10.1 Mitral E to LV E' Lateral Ratio 9.7 Mitral E to LV E' Septal Ratio 10.5 TR Peak Velocity 260.0 cm/s TR Peak Gradient 27.0 mmHg TV Peak E Velocity 83.0 cm/s Right Atrial Pressure 5.0 mmHg Pulmonary Artery Systolic Pressu 32.0 mmHg FINDINGS Left Ventricle Left ventricle is normal in size. LV systolic function is normal with EF of 55 to 60%. No regional wall motion abnormalities are seen. Right Ventricle Normal in size and function Right Atrium Normal in size Left Atrium Normal in size Mitral Valve Structurally normal mitral valve. Mild mitral regurgitation. Aortic Valve Structurally normal aortic valve. No significant stenosis or regurgitation Tricuspid Valve Mild tricuspid regurgitation. Pulmonary artery systolic pressure is normal Pulmonic Valve Not well visualized Pericardium Not well visualized Aorta Normal in size IVC Appears to be normal CONCLUSIONS Technically limited quality echocardiogram because of poor ultrasonic windows. LV systolic function is normal with EF of 55 to 60%. Mild mitral regurgitation Mild tricuspid regurgitation No comparison studies are available. Man Zhang MD (Electronically Signed) Final Date: 26 September 2023 14:08 S
[2023-09-26] MEDS: dexamethasone 10 mg/mL INJ 6 MG IVP (14:56)
[2023-09-26] MEDS: remdesivir 100 MG in sodium chloride 0.9% (100 ml) 80 ML IV (17:07)
[2023-09-27] VITALS: BP 106/68; PULSE 70; RESP 16; TEMP 36.6; O2SAT 94
[2023-09-27] MEDS: enoxaparin 120 mg/0.8 mL Syringe 110 MG SUBCUT ×2 (02:18→13:34)
[2023-09-27 04:00] VITALS: BP 103/56; PULSE 72; RESP 17; TEMP 36.9; O2SAT 89
[2023-09-27 05:08] LABS: Basophils % 0.2 %; Hematocrit 39.3 % (37-53); Lymphocytes # 2.1 10^3/uL (0.8-4.8); Lymphocytes % 25.2 %; Mean Corpuscular HGB Conc 32.3 g/dL (30-55); Mean Corpuscular Hemoglobin 27.6 pg (27-33); Mean Corpuscular Volume 85.4 fl (82-101); Mean Platelet Volume 9.2 fL (7.4-10.4); Monocytes # 0.8 10^3/uL (0.2-0.9); Neutrophils # 5.18 10^3/uL (1.8-7.7); Neutrophils % 63.6 %; Nucleated Red Blood Cells % 0 %; Platelet Count 304 10^3/cmm (157-399); Red Cell Distribution Width 14.3 % (12.1-15.1); White Blood Count 8.16 10^3/uL (3.29-11.43)
[2023-09-27 05:34] LABS: Alanine Aminotransferase 25 U/L (0-41); Albumin Level 3.3 g/dL (3.5-5.2); Alkaline Phosphatase 91 U/L (40-130); Anion Gap 11.3 (5-19); Aspartate Amino Transferase 69 U/L (0-40); Blood Urea Nitrogen 12 mg/dL (8-23); Calcium 8.7 mg/dL (8.5-10.5); Carbon Dioxide 26 mmol/L (22-29); Chloride 105 mmol/L (98-107); Globulin 2.9 g/dL (1.3-4.6); Glomerular Filtration Rate 112.5 mL/min (90-130); Glucose 128 mg/dL (65-115); Osmolality Calculated 287 mOsm/kg (285-295); Potassium 4.3 mmol/L (3.5-5.1); Sodium 138 mmol/L (136-145); Total Bilirubin 0.2 mg/dL (0.15-1.2); Total Protein 6.2 g/dL (6.6-8.7)
[2023-09-27 07:56] VITALS: BP 106/64; PULSE 77; RESP 16; TEMP 36.9; O2SAT 92
[2023-09-27] MEDS: nicotine 21 mg Patch 1 PATCH TRANSDERMA (09:56)
[2023-09-27] MEDS: docusate sodium 100 mg Capsule PO ×2 (09:56→18:12)
[2023-09-27] MEDS: atorvastatin 40 mg Tablet PO (09:56)
[2023-09-27] MEDS: metoprolol succinate ER (24 HR) 50 mg Tablet PO (09:56)
[2023-09-27] MEDS: lamoTRIgine 100 mg Tablet 200 MG PO ×2 (09:56→18:12)
[2023-09-27] MEDS: pantoprazole DR 40 mg Tablet PO (09:56)
[2023-09-27] MEDS: tamsulosin 0.4 mg Capsule PO (09:56)
[2023-09-27 10:00] VITALS: O2SAT 95
[2023-09-27 10:53] VITALS: BP 129/75; PULSE 65; RESP 16; TEMP 36.9; O2SAT 96
--- NOTE | 2023-09-27 11:50 | P.PN_ITS ---
Subjective 2 Subjective: Patient this morning is stating that he thinks he will be ready by later today or tomorrow He is not complain of shortness of breath or chest pain but endorsing weakness and lethargy, currently on 2 to 3 L Afebrile Tolerating his diet Vitals/I&O/Wt Last Vital Signs Temp 98.4 F 09/27/23 10:53 Pulse 65 09/27/23 10:53 Resp 16 09/27/23 10:53 BP 129/75 09/27/23 10:53 Pulse Ox 96 09/27/23 10:53 O2 Del Method Nasal Cannula 09/27/23 10:53 O2 Flow Rate 3 09/27/23 10:53 09/26/23 09/27/23 09/27/23 22:59 06:59 14:59 Intake Total 340 / 2023.333 560 / 560 Output Total 1900 / 1900 300 / 2200 Balance -1560 / 123.333 -300 / -176.667 560 / 560 Weight last 48 hrs Weight 138.164 kg Weight 116.936 kg Weight 113.398 kg Physical Exam 2 Narrative: Awake and alert Fatigue lethargic nonfocal neuroexam Currently on room air when I saw him I put him on 2 L of oxygen Abdomen soft Looks euvolemic Eating breakfast Urinary Catheter Management: Villalobos: Cath Placed During This Visit: yes Reason for Continuing Indwelling Catheter: Other Urinary Catheter Date of Insertion: 09/25/23 Urinary Catheter Time of Insertion: 18:32 Data 09/27/23 04:57 09/27/23 04:57 A&P Assessment and plan (1) Pulmonary embolism: (2) Mild dehydration: (3) COVID-19: (4) Acute encephalopathy: (5) Acute hypoxemic respiratory failure: Plan Plan to discharge later today versus tomorrow morning currently on 2 to 3 L Lives alone On therapeutic Lovenox for PE Hemodynamic stable Continue Decadron and remdesivir Full code I am not going to change his medications today Attestations 2 Medical Necessity Statement*: Discharge tomorrow Diagnoses Pulmonary embolism I26.99 Mild dehydration E86.0 COVID-19 U07.1 Acute encephalopathy G93.40 Acute hypoxemic respiratory failure J96.01
[2023-09-27] MEDS: dexamethasone 10 mg/mL INJ 6 MG IVP (13:35)
[2023-09-27] MEDS: remdesivir 100 MG in sodium chloride 0.9% (100 ml) 80 ML IV (18:12)
[2023-09-27 19:58] VITALS: BP 133/79; PULSE 60; RESP 18; TEMP 36.8; O2SAT 95
[2023-09-28] VITALS (7 sets, daily range): BP systolic 116–146; BP diastolic 62–77; PULSE 57–84; RESP 17–18; TEMP 36.4–36.8; O2SAT 92–96; BMI 44.3
[2023-09-28] MEDS: enoxaparin 120 mg/0.8 mL Syringe 110 MG SUBCUT (02:39)
[2023-09-28] MEDS: docusate sodium 100 mg Capsule PO (08:14)
[2023-09-28] MEDS: metoprolol succinate ER (24 HR) 50 mg Tablet PO (08:14)
[2023-09-28] MEDS: pantoprazole DR 40 mg Tablet PO (08:14)
[2023-09-28] MEDS: atorvastatin 40 mg Tablet PO (08:14)
[2023-09-28] MEDS: lamoTRIgine 100 mg Tablet 200 MG PO (08:14)
[2023-09-28] MEDS: tamsulosin 0.4 mg Capsule PO (08:15)
[2023-09-28] MEDS: nicotine 21 mg Patch 1 PATCH TRANSDERMA (08:15)
--- NOTE | 2023-09-28 11:47 | P.DS_ITS ---
Discharge Providers Date of Admission: 09/25/23 11:38 Date of Discharge: September 28, 2023 Attending Provider at Admission: Gilberto Kam MD Attending Provider at Discharge: Rafal Munoz MD Primary Care Provider: Ann Marie Maurer MD Diagnoses at Discharge Discharge Diagnosis (1) Pulmonary embolism: Status: Acute (2) Mild dehydration: Status: Acute (3) COVID-19: Status: Acute (4) Acute encephalopathy: Status: Acute (5) Acute hypoxemic respiratory failure: Status: Acute Reason for Visit Reason for Visit: left leg pain, AMS Hospital Course Hospital Course CT 71 male who lives alone, does not use oxygen at home was admitted for management evaluation of hypoxic respiratory failure related to COVID-19, patient required 2 L of oxygen throughout hospitalization remained afebrile received Decadron and remdesivir, patient does have onychomycosis, will give him podiatry follow-up at the time of discharge, will arrange 2 L of oxygen, patient was diagnosed with PE as well he will get Eliquis at the time of discharge, echo showed preserved ejection fraction, I will give him Lasix along potassium supplementation terbinafine, range oxygen, give him albuterol he remained normotensive and afebrile Physical Exam Narrative: Awake and alert GCS 15 Lower extremity onychomycosis Osteoarthritis of knee and ankles GCS 15 nonfocal neuroexam pleasant and cooperative Urinary Catheter Management: Villalobos: Cath Placed During This Visit: yes Reason for Continuing Indwelling Catheter: Acute Urinary Retention or Obstruction Urinary Catheter Date of Insertion: 09/25/23 Urinary Catheter Time of Insertion: 18:32 Discharge Data Studies Completed and Pending Completed Studies During Hospitalization Category Date Time Status CT head wo con* [id number] Stat Cat Scan 09/25/23 07:52 Completed CTA chest [CT angio chest PE protcl [id number]] Stat Cat Scan 09/25/23 10:25 Completed XR ankle LT min 3V* [id number] Stat Exams 09/25/23 08:48 Completed XR chest 1V portable [id number] Stat Exams 09/25/23 08:33 Completed XR hip LT 2-3V wo/w pel* [id number] Stat Exams 09/25/23 08:48 Completed XR knee LT 3V* [id number] Stat Exams 09/25/23 08:48 Completed CV. echo wo/w contrast [id number] Routine Ultrasound 09/26/23 14:33 Completed US arterial duplex lower extremity LT [CV arterial Ultrasound 09/25/23 14:08 [place] [id number]] Routine US venous duplex lower extremity bilat [CV venous Ultrasound 09/25/23 08:07 [place] [address]] Stat Pending at discharge Category Date Time Status Blood Cultures ([facility]) Routine Lab 09/25/23 09:48 Received Blood Cultures ([facility]) Routine Lab 09/25/23 09:50 Received Radiology Impressions Duplex Scan Lower Extremity Artery 09/25/23 14:08 IMPRESSION: No stenosis or occlusion. Laboratory Results WBC 8.16 10^3/uL (3.29-11.43) 09/27/23 04:57 RBC 4.60 10^6/uL (3.85-5.65) 09/27/23 04:57 Hgb 12.70 g/dL (11.27-16.99) 09/27/23 04:57 Hct 39.3 % (37-53) 09/27/23 04:57 MCV 85.4 fl (82-101) 09/27/23 04:57 MCH 27.6 pg (27-33) 09/27/23 04:57 MCHC 32.3 g/dL (30-55) 09/27/23 04:57 RDW 14.3 % (12.1-15.1) 09/27/23 04:57 Plt Count 304 10^3/cmm (157-399) 09/27/23 04:57 MPV 9.2 fL (7.4-10.4) 09/27/23 04:57 Neut % (Auto) 63.6 % 09/27/23 04:57 Lymph % (Auto) 25.2 % 09/27/23 04:57 Whiteside % (Auto) 10.0 % 09/27/23 04:57 Eos % (Auto) 0.0 % 09/27/23 04:57 Baso % (Auto) 0.2 % 09/27/23 04:57 Neut # (Auto) 5.18 10^3/uL (1.8-7.7) 09/27/23 04:57 Lymph # (Auto) 2.1 10^3/uL (0.8-4.8) 09/27/23 04:57 Whiteside # (Auto) 0.8 10^3/uL (0.2-0.9) 09/27/23 04:57 Eos # (Auto) 0.0 10^3/uL (0.0-0.8) 09/27/23 04:57 Baso # (Auto) 0.0 10^3/uL (0.0-0.1) 09/27/23 04:57 Nucleated RBC % (auto) 0 % 09/27/23 04:57 Nucleated RBCs # 0.0 /100WBC 09/27/23 04:57 Sodium 138 mmol/L (136-145) 09/27/23 04:57 Potassium 4.3 mmol/L (3.5-5.1) 09/27/23 04:57 Chloride 105 mmol/L (98-107) 09/27/23 04:57 Carbon Dioxide 26 mmol/L (22-29) 09/27/23 04:57 Anion Gap 11.3 (5-19) 09/27/23 04:57 BUN 12 mg/dL (8-23) 09/27/23 04:57 Creatinine 0.7 mg/dL (0.7-1.2) 09/27/23 04:57 GFR Calculation 112.5 mL/min (90-130) 09/27/23 04:57 Glucose 128 mg/dL (65-115) H 09/27/23 04:57 Calculated Osmolality 287 mOsm/kg (285-295) 09/27/23 04:57 Lactic Acid 3.5 mmol/L (0.5-2.2) H 09/25/23 07:22 Lactic Acid (Sepsis) 2.2 mmol/L (0.5-2.2) 09/25/23 09:50 Calcium 8.7 mg/dL (8.5-10.5) 09/27/23 04:57 Magnesium 2.1 mg/dL (1.7-2.3) 09/26/23 05:28 Total Bilirubin 0.2 mg/dL (0.15-1.2) 09/27/23 04:57 AST 69 U/L (0-40) H 09/27/23 04:57 ALT 25 U/L (0-41) 09/27/23 04:57 Alkaline Phosphatase 91 U/L (40-130) 09/27/23 04:57 Creatine Kinase 65 U/L (39-308) 09/25/23 07:22 Troponin T Baseline 13 ng/L (0-15) 09/25/23 07:22 Troponin T 120 Minute 15.49 ng/L (0-15) H 09/25/23 09:50 Delta Troponin T 2.49 ABS# (0-10) 09/25/23 09:50 Troponin T Hi Sens 6Hr 19.23 ng/L (0-15) H 09/25/23 13:40 Troponin T Hi Sens 6Hr Delta 6.23 ng/L (0-12) 09/25/23 13:40 C-Reactive Protein 47.2 mg/L (0.0-4.9) H 09/26/23 05:28 NT-Pro-B Natriuret Pep < 36 pg/mL (0-125) 09/25/23 07:22 Total Protein 6.2 g/dL (6.6-8.7) L 09/27/23 04:57 Albumin 3.3 g/dL (3.5-5.2) L 09/27/23 04:57 Globulin 2.9 g/dL (1.3-4.6) 09/27/23 04:57 Lipase 25 U/L (13-60) 09/25/23 07:22 Procalcitonin 0.08 ng/mL (0-0.5) 09/26/23 05:28 TSH 0.70 uIU/mL (0.27-4.20) 09/25/23 07:22 Urine Color Yellow (Yellow) 09/25/23 10:07 Urine Appearance Sl hazy (CLEAR) A 09/25/23 10:07 Urine pH 8 (5-7) H 09/25/23 10:07 Ur Specific Hollister 1.015 (1.005-1.030) 09/25/23 10:07 Urine Protein Neg (Negative) 09/25/23 10:07 Urine Glucose (UA) Norm (Normal) 09/25/23 10:07 Urine Ketones Negative (Negative) 09/25/23 10:07 Urine Blood 2+ (Negative) H 09/25/23 10:07 Urine Nitrate Negative (Negative) 09/25/23 10:07 Urine Bilirubin Neg (Negative) 09/25/23 10:07 Prot Sulfosalicylic Acd Negative (Negative) 09/25/23 10:07 Urine Urobilinogen Norm mg/dL (Negative) 09/25/23 10:07 Ur Leukocyte Esterase Negative (Negative) 09/25/23 10:07 Urine RBC 0-4 /hpf (0-2) H 09/25/23 10:07 Urine WBC 0-4 /hpf (0-5) H 09/25/23 10:07 Ur Squamous Epith Cells 0-4 /hpf (0-5) H 09/25/23 10:07 Ur Transition Epith Cell 0-4 /hpf 09/25/23 10:07 Amorphous Sediment Not Reportable 09/25/23 10:07 Urine Bacteria Trace /hpf (NONE) 09/25/23 10:07 Urine Mucus None /hpf 09/25/23 10:07 Coronavirus 229E (PCR) Not detected (NOT DETECT) 09/25/23 09:03 Influenza Type A Ag Negative (Negative) 09/25/23 09:03 Influenza Type B Ag Negative (Negative) 09/25/23 09:03 SARS-CoV-2 (PCR) Detected (NOT DETECT) A 09/25/23 09:03 Vitals Last Vital Signs Temp 98.2 F 09/28/23 08:00 Pulse 62 09/28/23 11:05 Resp 17 09/28/23 11:05 BP 122/62 09/28/23 11:05 Pulse Ox 92 09/28/23 11:05 O2 Del Method Nasal Cannula 09/28/23 11:05 O2 Flow Rate 2 09/28/23 11:05 Discharge Plan Discharge Patient Disposition: Home Condition: Stable Prescriptions: New Eliquis 5 mg tablet 5 mg PO BID Qty: 120 2RF Rx Instructions: 10 mg twice daily for 7 days then 5 mg twice daily for 3 months tamsulosin 0.4 mg Capsule 0.4 mg PO DAILY Qty: 60 2RF albuterol sulfate 90 mcg/actuation HFA aerosol inhaler 1 inh inhalation Q6H PRN (Reason: shortness of breath or wheezing) Qty: 6.7 2RF terbinafine HCl 1 % cream 1 applic topical BID Qty: 30 1RF Continued atorvastatin 80 mg tablet 80 mg PO DAILY metoprolol succinate 50 mg tablet extended release 24 hr 50 mg PO DAILY polyethylene glycol 3350 [Miralax] 17 gram/dose powder 17 gm PO DAILY pantoprazole 40 mg tablet,delayed release (DR/EC) 40 mg PO DAILY docusate sodium 100 mg capsule 100 mg PO BID lamotrigine 200 mg tablet 200 mg PO BID Qty: 60 0RF furosemide 40 mg tablet 40 mg PO DAILY Changed potassium chloride 20 mEq tablet,ER particles/crystals 20 meq PO DAILY Qty: 30 0RF Discontinued ibuprofen 800 mg tablet 800 mg PO BEDTIME Discharge Orders: Discharge Order (Routine); Ordered 09/28/23 Ordered By: Rafal Munoz Other Ambulatory Orders: DME: Oxygen (Order) Timeframe: 3 Months Location: None Selected Ordered By: Rafal Munoz Referrals: Ann Marie Maurer MD [Primary Care Provider] - Discharge Diet: Cardiac Discharge Activity: Increase activity as tolerated Patient Instructions: Altered Mental Status (ED), Opioid Safety Activity Restrictions/Additional Instructions: Please take Eliquis 10 mg twice daily for 7 days then you will take 5 mg twice daily for 3 months You can take Lasix along potassium on daily basis For your onychomycosis fungal infection of foot please take terbinafine cream which you can apply twice a day Avoid ibuprofen 2 which can cause kidney injury and gastric ulcer You have osteoarthritis of your knee and ankle can use Tylenol Discharge Attestations Time Spent in Discharge Care*: greater than 30 min Quality Metrics Clinical Quality Measures [ No reported AMI, CVA or VTE this stay] Coding Level of Care Code Acute Code for Chg Fwd Diagnoses Pulmonary embolism I26.99 Mild dehydration E86.0 COVID-19 U07.1 Acute encephalopathy G93.40 Acute hypoxemic respiratory failure J96.01
== END 2023-09-28 15:11 | disposition home or self-care (01) | DRG 177 ==
LOC: ER 11:33 → MEDSURG 12:05
PROVIDERS: Admitting Provider Internal Medicine; Emergency Provider Family Medicine; PCP Family Medicine; Visit Provider Internal Medicine
DX: U07.1 COVID-19 (principal); I26.99 Other pulmonary embolism without acute cor pulmonale; J96.01 Acute respiratory failure with hypoxia; G93.40 Encephalopathy, unspecified; I10 Essential (primary) hypertension; K21.9 Gastro-esophageal reflux disease without esophagitis; E78.5 Hyperlipidemia, unspecified; M79.606 Pain in leg, unspecified; E86.0 Dehydration; R33.9 Retention of urine, unspecified; B35.1 Tinea unguium
CPT/HCPCS: 36415; 51702; 70450; 71045; 71275; 73502; 73562; 73610; 80053; 81001; 82550; 83605; 83690; 83735; 83880; 84145; 84443; 84484; 85025; 86140; 87040; 87635; 87804; 93005; 93926; 93970; 94760; 96365; 96372; 96375; 99285; C8929; J0248; J1100; J1650; J1956; J2270; J2405; J7030; J7040; Q3014; Q9956; Q9967

== ENCOUNTER 2023-11-24 09:07 | Emergency (ER) | payer MEDICARE, MEDICAID, SELFPAY ==
[2023-11-24 09:10] VITALS: BP 127/65; PULSE 81; RESP 17; TEMP 36.5; O2SAT 94; BMI 43.0
--- NOTE | 2023-11-24 09:10 | ED_ITS ---
HPI - Back Pain/Injury General: Chief Complaint: Back Pain/Injury Stated Complaint: back pain Time Seen by Provider: 11/24/23 09:09 Source: patient and EMS Mode of arrival: EMS Limitations: no limitations History of Present Illness: Patient is a 68-year-old male who presents to ED today via EMS for evaluation of lower back pain that he states started yesterday while he was walking to the kitchen and states my back gave out . He did not fall. He is not noting any radicular discomfort down into his lower extremities. He states he does have a longstanding history of chronic back and knee pains. He does not complain of saddle anesthesia. No bowel or bladder dysfunction. He states he has been ambulatory at home since he injured the back. MD elicited complaint: back pain Pertinent past history: prior back pain Onset (ago): day(s) (yesterday) Timing: constant Severity: moderate Similar Symptoms Previously: Yes Location: lumbar spine and thoracic spine Radiation: none Exacerbating factors: movement Relieving factors: immobilization Associated symptoms: Deny abdominal pain, chills, difficulty walking, dysuria, fever(s) or hematuria Work related injury: No Review of Systems Const: Denies: fever(s), chills or body aches Card: Denies: chest pain Resp: Denies: dyspnea GI: Denies: abdominal pain : Denies: flank pain, dysuria or hematuria Musc: Reports: back pain and extremity swelling (chronic LE swellling); Denies: neck pain, extremity pain, joint pain or joint swelling Skin/Breast: Denies: rash Neuro: Denies: headache(s), numbness in extremities, weakness in extremities, sensory changes or difficulty walking PFS ED PFSH: Medical History Acute encephalopathy Mild dehydration Acute hypoxemic respiratory failure Leg pain Pulmonary embolism COVID-19 Seizure disorder GERD (gastroesophageal reflux disease) Hypertension Hyperlipidemia Seizures H/O appendicitis Surgical History History of appendectomy H/O foot surgery Family History Other CAD (coronary artery disease) Hypertension Social History Smoking and tobacco/nicotine status: never used tobacco/nicotine Alcohol intake: never Physical Exam Const: COMMON NORMALS: no acute distress, patient oriented x3, no limitations, alert and well nourished GENERAL APPEARANCE: cooperative NUTRITIONAL APPEARANCE: obese morbidly obese ORIENTATION/CONSCIOUSNESS: Yes awake, Yes oriented to person, Yes oriented to place and Yes oriented to time Neck/C-Spine: COMMON NORMALS: full ROM GENERAL: Yes normal visual inspection CERVICAL SPINE: Yes cervical ROM normal and No Cervical spine tenderness Resp: COMMON NORMALS: normal respiratory effort and clear to auscultation bilaterally AUSCULTATION: clear to auscultation bilaterally Cardio: COMMON NORMALS: regular rate and regular rhythm RATE: regular rate RHYTHM: regular rhythm GI: COMMON NORMALS: Normal to inspection, nondistended, normoactive bowel sounds present, Soft to palpation, non-tender and no masses PALPATION: Yes Soft to palpation Back/Pelvis: COMMON NORMALS: straight leg raise negative bilaterally TH ORACIC SPINE/UPPER BACK: Yes normal to inspection, Yes thoracic ROM normal, Yes thoracic spinal tenderness (lower T spine), Yes paraspinal muscle tenderness and No paraspinal muscle spasm LUMBAR SPINE/LOWER BACK: Yes ROM limited, Yes lumbar spinal tenderness, Yes paraspinal muscle tenderness (across lower back), No paraspinal muscle spasm and Yes straight leg raise negative bilaterally PELVIS: Yes buttocks normal and No sciatic notch tenderness SACRUM: no tenderness COCCYX: no tenderness Extremity: COMMON NORMALS: normal to inspection NARRATIVE EXTREMITY EXAM: chronic symmetrical LE edema; chronic skin changes to bilateral feet GENERAL: Yes normal exam except as noted Neuro: TANIA COMA SCALE: document GCS findings [place] coma scale eye opening: Spontaneous Tania coma scale verbal response: Orientated [place] coma scale motor response: Obey commands [place] coma scale total score: 15 COMMON NORMALS: patient oriented x3, moves all extremities, no focal motor deficits and no sensory deficits noted SENSORIUM/ORIENTATION: Yes alert, Yes oriented to person, Yes oriented to place and Yes oriented to time Course Vital Signs: Vital signs: Vital Signs Temperature 97.7 F 11/24/23 09:10 Pulse Rate 65 11/24/23 11:27 Respiratory Rate 17 11/24/23 09:10 Blood Pressure 142/69 11/24/23 11:27 Pulse Oximetry 96 11/24/23 11:27 Oxygen Delivery Me thod Room Air 11/24/23 10:46 MDM - Back Pain/Injury Medical Decision Making XRs of thoracic and lumbar back showing no acute injuries. Degenerative changes noted. He has no neurologic symptoms on history or physical exam. He was ambulatory here without difficulty. Patient states he does have a walker at home. Encouraged to use this at all times. Will place him on steroids and muscle relaxers to help with his pain. He states he does have a prescription for 800 Mg ibuprofen but states he was told not to take this secondary to him being on Eliquis. I think his fall risk is significant therefore I will hold off on opiate pain medications. Recommend follow-up with primary care if back pain persist. Further imaging may be indicated. Return ED precautions given. Medical Records I reviewed the patient's medical records. All radiology interpretation(s) finalized by discharge Discharge Plan Discharge Patient Disposition: Home Clinical Impression: Acute lumbar back pain Qualifiers: Back pain laterality: midline Sciatica presence: without sciatica Qualified Code(s): M54.50 - Low back pain, unspecified Condition: Stable Prescriptions: New methocarbamol 500 mg tablet 1,000 mg PO Q8H Qty: 30 0RF Medrol (Bertram) 4 mg tablets,dose pack See Rx Instructions .ROUTE .COMPLEX Qty: 21 0RF Rx Instructions: orally per package directions No Action atorvastatin 80 mg tablet 80 mg PO DAILY metoprolol succinate 50 mg tablet extended release 24 hr 50 mg PO DAILY polyethylene glycol 3350 [Miralax] 17 gram/dose powder 17 gm PO DAILY pantoprazole 40 mg tablet,delayed release (DR/EC) 40 mg PO DAILY docusate sodium 100 mg capsule 100 mg PO BID PRN (Reason: Constipation) lamotrigine 200 mg tablet 200 mg PO BID Qty: 60 0RF furosemide 40 mg tablet 40 mg PO DAILY tamsulosin 0.4 mg Capsule 0.4 mg PO DAILY Qty: 60 2RF albuterol sulfate 90 mcg/actuation HFA aerosol inhaler 1 inh inhalation Q6H PRN (Reason: shortness of breath or wheezing) Qty: 6.7 2RF Eliquis 5 mg tablet 5 mg PO BID Qty: 120 2RF Rx Instructions: 10 mg twice daily for 7 days then 5 mg twice daily for 3 months potassium chloride 20 mEq tablet,ER particles/crystals 20 meq PO DAILY Qty: 30 0RF Discharge Orders: Discharge ED (Routine); Ordered 11/24/23 Ordered By: Miat Espinoza Referrals: Ann Marie Maurer MD [Primary Care Provider] - Activity Restrictions/Additional Instructions: As we discussed I want you to ambulate with the help of your walker AT ALL TIMES to help prevent falls. Please follow-up with your primary care provider later this week or early next week for follow-up. If back pain persists, further imaging may be required. You may continue to take [id number] Tylenol up to 1000 mg every 4 hours as needed for pain. We are placing you on steroids and muscle relaxers to also help. Coding Level of Care Code ED Claims Clerk for Triston Vasquez
--- NOTE | 2023-11-24 09:18 | XR_ITS ---
WS: [id number] Examination: XR lumbar spine 2-3V* [id number] Reason for Exam: pain Date: November 24, 2023 Comparison: None. Findings: The pedicles and the bone density are maintained There is curvature with convexity to the right. There is subtle old suspected wedging of L1. Severe degenerative disc disease at L1-2 and L2-3 are no manuela with slightly disc space narrowing as well as anterior and posterior osteophytes. Less severe deg enerative changes inferiorly of the lumbar spine. Facet hypertrophy is identified with subtle anterol isthesis at L4-5. Impression: There is mild scoliosis with diffuse degenerative disc disease. This is dominant at L1-2 and L2-3. Beverly spected old subtle L1 wedging is noted with subtle L4-5 anterolisthesis.
--- NOTE | 2023-11-24 09:18 | XR_ITS ---
WS: [id number] Examination: XR thoracic spine 3V* [id number] Reason for Exam: pain Date: November 24, 2023 Comparison: None. Findings: The pedicles and the bone density are intact. There is no anterior wedging or compression of the thoracic vertebral bodies. Alignment is satisfacto ry without subluxation. Hypertrophic changes are identified involving the lower lumbar spine. IMPRESSION: There is no compression or subluxation. Inferior hypertrophic changes are present.
[2023-11-24] MEDS: ketorolac 30 mg/mL INJ IM (09:28)
[2023-11-24] MEDS: dexamethasone 10 mg/mL INJ IM (09:29)
[2023-11-24] MEDS: morphine 4 mg/mL SDV 1 mL IM (09:29)
--- NOTE | 2023-11-24 10:00 | PC.PHAR ---
pt states he has a nurse who sets his meds up-called [facility] [phone]-mika blackburn from [employer] states she will fax med list-medications entered are what ext med history shows has been filled recently-will update if different from pts home health med list
[2023-11-24 10:46] VITALS: BP 144/60; PULSE 73; O2SAT 97
[2023-11-24 11:27] VITALS: BP 142/69; PULSE 65; O2SAT 96
== END 2023-11-24 11:25 | disposition home or self-care (01) ==
PROVIDERS: Emergency Provider Physician Assistant; PCP Family Medicine
DX: M54.50 Low back pain, unspecified (principal); Z79.01 Long term (current) use of anticoagulants; I10 Essential (primary) hypertension; E78.5 Hyperlipidemia, unspecified
CPT/HCPCS: 72072; 72100; 96372; 99284; J1100; J1885; J2270

== ENCOUNTER → 2024-06-07 14:11 | Outpatient (BNVA) | payer MEDICARE, MEDICAID, SELFPAY | PROVIDERS: PCP Family Medicine; Visit Provider Podiatrist Foot & Ankle Surgery | DX: I73.9 Peripheral vascular disease, unspecified; I89.0 Lymphedema, not elsewhere classified | CPT/HCPCS: 99204 ==

== ENCOUNTER 2025-03-07 11:31 | Emergency (ER) | payer MEDICARE, MEDICAID, SELFPAY ==
[2025-03-07 11:35] VITALS: BP 113/56; PULSE 64; RESP 18; TEMP 36.8; O2SAT 97
--- OUTSIDE RECORDS SUMMARY | 2025-03-07 11:43 | XMS_ITS | Clinical Summary ---
Author Organization [facility] Address [address] [place]: Epic Prelude ADT [place] [address] Care Team Providers Care Mixer Driver Name Role Phone Ann Marie Maurer MD Primary Care Provider Allergies No known active allergies Medications carBAMazepine (CARBATROL) 300 mg Extended Release 12 hour capsuleIndications :Partial epilepsy with impairment of consciousness (CMS/HCC) TAKE ONE CAPSULE (300 MG) BY MOUTH TWICE DAILY. 60 Capsule 12 9 Active raNITIdine (ZANTAC) 150 mg tabletIndications: Partial epilepsy with impairment of consciousness (CMS/HCC) Take 150 mg by mouth 2 times daily. 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 Gender Identity Not on file Sexual Orientation Not on file Last Filed Vital Signs Vital Sign Reading Time Taken Comments Blood Pressure 137/80 12/28/2018 9:46 AM CDT Pulse 63 12/28/2018 9:46 AM CDT Temperature - - Respiratory Rate - - Oxygen Saturation - - Inhaled Oxygen Concentration - - Weight 121.3 kg (267 lb 6.4 oz) 12/28/2018 9:46 AM CDT Height 177.8 cm (5' 10 ) 12/28/2018 9:46 AM CDT Body Mass Index 38.37 12/28/2018 9:46 AM CDT Plan of Treatment Health Maintenance Due Date Last Done Comments DTAP/TDAP/TD VACCINES (1 - Tdap) 1975 COLORECTAL SCREENING 2001 Colorectal Cancer Screening 2001 FIT-DNA Q 3 years 2001 FIT/FOBT Q 1 year 2001 Flex Sig/CT Colonography Q 5 years 2001 PNEUMOCOCCAL VACCINE 50+ YEARS (1 of 1 - PCV) 07/17/20 06 ZOSTER VACCINE (1 of 2) 2006 INFLUENZA VACCINE (#1) 2025 RSV VACCINE (60+ or ) (1 - 1-dose 75+ series) 2031 Care Teams Mixer Driver Relationship Specialty Start Date End Date Ann Marie Maurer MD [address] [place] [address] PCP - General Family Practice 01/01/18
--- OUTSIDE RECORDS SUMMARY | 2025-03-07 11:43 | XMS_ITS | Clinical Summary ---
Author Organization [facility] Address [address] [place] [address] Care Team Providers Care Sales Representative [employer] Name Role Phone Ann Marie Maurer MD Primary Care Provider Allergies No known active allergies Medications atorvastatin (LIPITOR) 40 mg tablet 4 Active fluticasone (FLONASE) 50 mcg/spray Dickinson, Suspension 4 Active metoprolol succinate ER 24 hour (TOPROL-XL) 50 mg tablet 4 Active raNITIdine (ZANTAC) 150 mg tabletIndications: Partial epilepsy with impairment of consciousness (CMS/HCC) Take 150 mg by mouth 2 times daily. Active carBAMazepine (CARBATROL) 300 mg Extended Release 12 hour capsuleIndications :Partial epilepsy with impairment of consciousness (CMS/HCC) TAKE ONE CAPSULE (300 MG) BY MOUTH TWICE DAILY. 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
--- OUTSIDE RECORDS SUMMARY | 2025-03-07 11:43 | XMS_ITS | Encounter Summary ---
Author Organization [facility] Address [address] [place] [address] Care Team Providers Care Explosive Operator Name Role Phone Ann Marie Maurer MD Primary Care Provider Encounter Details Date Type Department Care Team (Latest Contact Info) Description 11/05/2002 Outpatient Historical [facility] [place] 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
--- OUTSIDE RECORDS SUMMARY | 2025-03-07 11:43 | XMS_ITS | Encounter Summary ---
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
--- OUTSIDE RECORDS SUMMARY | 2025-03-07 11:43 | XMS_ITS | Encounter Summary ---
[facility] Organization [facility] Address [address] [place] [address] Care Team Providers Care Certified Orthoptist Name Role Phone Ann Marie Maurer MD Primary Care Provider Encounter Details Date Type Department Care Team (Latest Contact Info) Description 05/25/2001 Outpatient Historical [facility] [place] [address], [address] [place] [address] [place] [address] [place] [address] Other convulsions (Primary Dx) Social History Tobacco Use Types Packs/Day Years Used Date Smoking Tobacco: Never Assessed Sex and Gender Information Value Date Recorded Sex Assigned at Not on file 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
--- OUTSIDE RECORDS SUMMARY | 2025-03-07 11:43 | XMS_ITS | Encounter Summary ---
Author Organization [facility] Address [address] [place] [address] Care Team Providers Care Stock Grader Name Role Phone Ann Marie Maurer MD Primary Care Provider Encounter Details Date Type Department Care Team (Latest Contact Info) Description 11/07/2003 Outpatient Historical [facility] [place] 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
--- OUTSIDE RECORDS SUMMARY | 2025-03-07 11:43 | XMS_ITS | Encounter Summary ---
Author Organization [facility] Address [address] [place] [address] Care Team Providers Care Roundhouse Worker Name Role Phone Ann Marie Maurer MD Primary Care Provider [phone] Encounter Details Date Type Department Care Team (Latest Contact Info) Description 03/13/1999 Outpatient Historical [facility] [place] [address] [place] [address] Other convulsions (Primary Dx) Social History Tobacco Use Types Packs/Day Years Used Date Smoking Tobacco: Never Assessed Sex and Gender Information Value Date Recorded Sex Assigned at Not on file 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
--- OUTSIDE RECORDS SUMMARY | 2025-03-07 11:43 | XMS_ITS | Encounter Summary ---
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
--- OUTSIDE RECORDS SUMMARY | 2025-03-07 11:43 | XMS_ITS | Encounter Summary ---
Author Organization [facility] Address [address] [place] [address] Care Team Providers Care Lawn Care Technician Name Role Phone Ann Marie Maurer MD Primary Care Provider Encounter Details Date Type Department Care Team (Late st Contact Info) Description 05/16/2000 Outpatient Historical [facility] [place] [place] [address] [place] [address] Encounter for long-term (current) use of other medications (Primary Dx); Other convulsions Social History Tobacco Use Types Packs/Day Years Used Date Smoking Tobacco: Never Assessed Sex and Gender Information Value Date Recorded Sex Assigned at Not on file 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
--- OUTSIDE RECORDS SUMMARY | 2025-03-07 11:43 | XMS_ITS | Encounter Summary ---
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
--- OUTSIDE RECORDS SUMMARY | 2025-03-07 11:43 | XMS_ITS | Encounter Summary ---
Author Organization [facility] Address [address] [place] [address] Care Team Providers Care Support Group Manager Name Role Phone Ann Marie Maurer MD Primary Care Provider Encounter Details Date Type Department Care Team (Latest Contact Info) Description 12/24/2005 Outpatient Historical [facility] [place] [facility] [address], [address] [place] [address] [place] [address] [place] [address] Other Convulsions (CMS/HCC) (Primary Dx) Social History Tobacco Use Types Packs/Day Years Used Date Smoking Tobacco: Never Assessed Sex and Gender Information Value Date Recorded Sex Assigned at Not on file 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
--- OUTSIDE RECORDS SUMMARY | 2025-03-07 11:43 | XMS_ITS | Data Portability ---
Author Organization [facility] Address [address] [facility] [address] [place] [address] Care Team Providers Care Lens Dotter Name Role Phone ANN MARIE ROUSSEAU Primary Care Provider Unavailabl e Assessment Encounter Date Assessment Date Assessment LastModified by Organization Details LastModified Time 10/07/2023 10/07/2023 Discussed w pt that he needs to stay active and do exercises and walking at home. If he becomes more immobile he will need to be placed in a NH. He does not want to do that but Im not sure how motivated he is. [email or web address] Not available 10/07/2023 17:20:37 Plan of Treatment Reminders Order Date Submit Date Provider Last Modified By Organization Details Last Modified Time Details Appointments None recorded. 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 Surgeries None recorded. Imaging None recorded. Medication Orders None recorded. Patient TargetsNo targets recorded. Patient InstructionsNo instructions recorded. 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 [address], [place], [address], 05/13/2024 16:38:50 05/13/20 24 05/13/2024 CMP (MALE ) BUN (blood urea nitrogen) 9.0 mg/dL 10.0-2 6.0 low Not Available [facility] [address] [facility] 1, [place], [address], 05/13/2024 16:38:50 05/13/20 24 05/13/2024 CMP (MALE ) creatinine (serum) 0.7 mg/dL 0.4-1. 5 Not Available [facility] [address] [facility] 1, [place], [address], 05/13/2024 16:38:50 05/13/20 24 05/13/2024 CMP (MALE ) BUN/creatini ne ratio 13.43 ratio Not Available [facility] [address] [facility] 1, [place], [address], 05/13/2024 16:38:50 05/13/20 24 05/13/2024 CMP (MALE ) eGFR calculated 125.8 Not Available [facility] [address] [facility], [place], [address], 05/13/2024 16:38:50 05/13/20 24 05/13/2024 CMP (MALE ) total protein 7.3 g/dL 6.0-8. 5 Not Available [facility] [address] [facility], [place], [address], 05/13/2024 16:38:50 05/13/20 24 05/13/2024 CMP (MALE ) total bilirubin 0.8 mg/dL 0.2-1. 3 Not Available [facility] [address] [facility], [place], [address], 05/13/2024 16:38:50 05/13/20 24 05/13/2024 CMP (MALE ) albumin 4.3 g/dL 3.5-5. 5 Not Available [facility] [address] [facility] 1, [place], [address], 05/13/2024 16:38:50 05/13/20 24 05/13/2024 CMP (MALE ) globulin 3.[address] [facility] [address] [facility] 1, [place], [address], 05/13/2024 16:38:50 05/13/20 24 05/13/2024 CMP (MALE ) AST (SGOT) 31.0 U/L 0.0-46 .0 Not Available [facility] [address] [facility] 1, [place], [address], 05/13/2024 16:38:50 05/13/20 24 05/13/2024 CMP (MALE ) altv (SGPT) 20.0 U/L 13.0-6 9.0 normal Not Available [facility] [address] [facility], [place], [address], 05/13/2024 16:38:50 05/13/20 24 05/13/2024 CMP (MALE ) A/G ratio 1.4 ratio Not Available [facility] [address] [facility], [place], [address], 05/13/2024 16:38:50 05/13/20 24 05/13/2024 CMP (MALE ) ALP phos 98.0 U/L 30.0-1 40.0 normal Not Available [facility] [address] [facility] 1, [place], [address], 05/13/2024 16:38:50 05/13/20 24 05/13/2024 CMP (MALE ) calcium 10.0 mg/dL 8.4-10 .5 Not Available [facility] [address] [facility] [address], [place], [address], 05/13/2024 16:38:50 05/13/20 24 05/13/2024 CMP (MALE ) sodium 138.0 mmol/ L 136.0- 145.0 Not Available [facility] [address] [facility] 1, [place], [address], 05/13/2024 16:38:50 05/13/20 24 05/13/2024 CMP (MALE ) potassium 4.0 mmol/ L 3.5-5. 1 Not Available [facility] [address] [facility] 1, [place], [address], 05/13/2024 16:38:50 05/13/20 24 05/13/2024 CMP (MALE ) chloride 106.0 mmol/ L 98.0-1 10.0 normal Not Available [facility] [address] [facility] [address], [place], [address], 05/13/2024 16:38:50 05/13/20 24 05/13/2024 CMP (MALE ) C02 24.0 mmol/ L 22.0-3 1.0 Not Available [facility] [address] [facility] 1, [place], [address], 05/13/2024 16:38:50 05/13/20 24 05/13/2024 CMP (MALE ) anion gap 8.0 calc Not Available [facility] [address] [facility] 1, [place], [address], 05/13/2024 16:38:50 05/13/20 24 05/13/2024 CMP (MALE ) osmolality 286.7 calc Not Available [facility] [address] [facility], [place], [address], 05/13/2024 16:38:50 05/13/20 24 05/13/2024 LIPID PROFI LE (MALE ) cholesterol 161.0 mg/dL 0.0-20 0.0 Not Available [facility] [address] [facility] [address], [place], [address], 05/13/2024 16:38:53 05/13/20 24 05/13/2024 LIPID PROFI LE (MALE ) trig 168.0 mg/dL 0.0-15 0.0 high Not Available [facility] [address] [facility] 1, [place], [address], 05/13/2024 16:38:53 05/13/20 24 05/13/2024 LIPID PROFI LE (MALE ) HDL - direct 37.0 mg/dL >40.0 low Not Available [facility] [address] [facility] [address], [place], [address], 05/13/2024 16:38:53 05/13/20 24 05/13/2024 LIPID PROFI LE (MALE ) VLDL - direct 33.6 mg/dL Not Available [facility] [address] [facility], [place], [address], 05/13/2024 16:38:53 05/13/20 24 05/13/2024 LIPID PROFI ZACARIAS (MALE ) LDL - direct 90.4 mg/dL 0.0-13 0.0 Not Available [facility] [address] [facility], [place], [address], 05/13/2024 16:38:53 05/13/20 24 05/13/2024 HBA1C hemaglobin A1C 6.8 4.2-6. 5 high Not Available [facility] [address] [facility] [address], [place], [address], 05/13/2024 16:38:55 Result Notes None recorded. 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 5 14:42:51 Amnesia 10985846 Completed 202108/06/2022 MEMORY LOSS OR IMPAIRME NT - Status is Inactive ; Recorded 08/06/20 9:56AM by Thea Oretga LPN, Annotati on/Adden dum; Promoted ; acuity set as *; Not Available [facility] 3 03:14:32 Seizure disorder 445507813 Active 2023 THEA alcocer [facility] 4 09:41:15 Osteoart hritis 093707714 Active 2023 THEA alcocer [facility] 4 08:38:35 Hyperten sive disorder 60183463 Active 2023 THEA alcocer [facility] 4 08:38:44 Gastroes ophageal reflux disease 878434569 Active 2023 THEA ORTEGA [facility] 4 08:38:50 Morbid obesity 425687209 Active 2023 THEA ORTEGA [facility] 4 08:39:00 Hypercho lesterol emia 99189190 Active 2023 THEA ORTEGA [facility] 4 08:39:09 History of pulmonar y embolus 209605285 Active From [facility] on 09/25/23 [facility] 4 15:20:14 Problem Notes None recorded. Procedures Surgical History Date Name Laterality Status Provider Name and Address Organization Details Recorded Time Appendectomy completed THEA ORTEGA [facility] 09/25/2023 08:34:52 Imaging Results None recorded. Procedure Notes None recorded. Medical Equipment None Reported. Allergies Allergen ID Allergen Name Allergen Category Reaction Reaction Severity Criticality Documentation Date Start Date Code Code System Note Provider Name and Address Organization Details Recorded Time 58302 Keppra medicatio n vomiting Not available Not available 03/22/2023 32106 7 RxNorm React ion: Viole nt vomit ing; Comme nt: Recor ded 08/06 2:22P M by Jay Jay Redmond, Offic e Visit ; Promo manulea; Patrick tenorio ce: *; Reaso n: Drug aller gy; ; Not Available [facility] 3 02:25:30 Medications Name Sig Start Date Stop Date Status Note LastModified by Organization Details LastModified Time furosemid e 40 mg tablet TAKE 1 TABLET BY MOUTH EVERY DAY active Not Available Not Available No t Available methocarb betty 500 mg tablet TAKE 2 TABLETS BY MOUTH EVERY 8 HOURS 05/13 completed Not Available Not Available Not Available terbinafi ne HCl 1 % topical cream APPLY TOPICALL Y TWICE DAILY 10/07 completed Not Available Not Available Not Available atorvasta tin 80 mg tablet TAKE 1 TABLET BY MOUTH AT BEDTIME active Not Available Not Available No t Available lamotrigi ne 200 mg tablet TAKE 1 TABLET BY MOUTH TWICE DAILY active Not Available Not Available No t Available ibuprofen 800 mg tablet TAKE 1 TABLET BY MOUTH AT BEDTIME NEEDED FOR joint pain 10/07 completed Not Available Not Available Not Available metoprolo l succinate ER 50 mg tablet,ex tended release 24 hr TAKE 1 TABLET BY MOUTH EVERY DAY active Not Available Not Available No t Available meloxicam 15 mg tablet TAKE 1 TABLET BY MOUTH EVERY DAY with food 05/13 completed Not Available Not Available Not Available potassium chloride ER 20 mEq tablet,ex tended release(p art/cryst ) TAKE 1 TABLET BY MOUTH EVERY DAY 2024 active Not Available Not Available Not Avai lable tamsulosi n 0.4 mg capsule take 1 capsule BY MOUTH EVERY DAY active Not Available Not Available No t Available pantopraz ole 40 mg tablet,de layed release TAKE 1 TABLET BY MOUTH EVERY DAY active Not Available Not Available No t Available methylpre dnisolone 4 mg tablets in a dose pack Take as directed on package for 6 days 05/13 completed Not Available Not Available Not Available albuterol sulfate HFA 90 mcg/actua tion aerosol inhaler INHALE 1 PUFF EVERY 6 HOURS NEEDED FOR SHORTNES S OF BREATH OR WHEEZING active Not Available Not Available No t Available atorvasta tin at bedtime 10/07 completed LB/autumn; 18782; Recorded 09/27/19 23 11:18AM by Thea Ortega LPN (Authori sarah through Ann Marie Rousseau MD), Refill Request; Refill Quantity : 90; Tablet; Not Available Not Available Not Available nystatin QID until resolved to rash 10/07 completed disp large; Recorded 08/06/20 22 2:57PM by Ann Marie Rousseau MD, Office Visit; Refill Quantity : 1; Applicat or; Not Available Not Available Not Available lamotrigi ne two times daily 10/07 completed LB/autumn; 87738; Recorded 09/27/19 23 11:19AM by Thea Ortega LPN (Authori sarah through Ann Marie Rousseau MD), Refill Request; Refill Quantity : 180; Tablet; Not Available Not Available Not Available furosemid e daily 10/07 completed LB/autumn; 56921; Recorded 04/01/20 22 8:10AM by Thea Ortega LPN (Authori sarah through Ann Marie Rousseau MD), Refill Request; Refill Quantity : 90; Tablet; Not Available Not Available Not Available metoprolo l succinate daily 10/07 completed LB/autumn; 10062; Recorded 09/27/19 23 11:19AM by Thea Ortega LPN (Authori carlitod through Ann Marie Rousseau MD), Refill Request; Refill Quantity : 90; Tablet; Not Available Not Available Not Available Potassium Chloride ER two times daily 10/07 completed OSMANY/autumn; 58991; Recorded 04/01/20 8:07AM by Thea Ortega LPN (Authori carlitod through Ann Marie Rousseau MD), Refill Request; Refill Quantity : 180; Tablet; Not Available Not Available Not Available Symbicort 160 mcg-4.5 mcg/actua tion HFA aerosol inhaler inhale TWO puffs TWICE DAILY 05/13 completed Not Available Not Available Not Available Eliquis 5 mg tablet TAKE 1 TABLET BY MOUTH TWICE DAILY active Not Available Not Available No t Available potassium chloride ER 20 mEq tablet,ex tended release TAKE 1 TABLET BY MOUTH EVERY DAY active Not Available Not Available No t Available Vitals Date Recorded Body height Body temperature Oxygen saturation Oxygen saturation in Arterial blood by Pulse oximetry Heart rate Systolic And Diastolic Provider Name and Address Organization Details Last Updated DateTime 4 177.8 cm 98 [degF] 94 % 94 % 84 /min 120/60 mm[Hg] THEA ORTEGA [facility], [facility] 4 16:20:26 Date Recorded Body height Body mass index (BMI) Body weight Body temperature Oxygen saturation Oxygen saturation in Arterial blood by Pulse oximetry Heart rate Systolic And Diastolic Provider Name and Address Organization Details Last Updated DateTime 4 177.8 cm 43 kg/m2 005407. 71 g 97.3 [degF] 94 % 94 % 89 /min 120/60 mm[Hg] THEA ORTEGA [facility] 4 14:47:03 Date Recorded Body height Body temperature Oxygen saturation Oxygen saturation in Arterial blood by Pulse oximetry Heart rate Systolic And Diastolic Provider Name and Address Organization Details Last Updated DateTime 4 177.8 cm 97.8 [degF] 94 % 94 % 87 /min 134/72 mm[Hg] CORDELL GRACE [facility] 4 14:59:17 Social History None recorded. Functional Status None recorded. Mental Status None recorded. Family History Relationship Description Onset Age of this Age Resolved Age Notes LastModified by Organization Details LastModified Time Father Myocardial infarction [email or web address] Not available 08/2023 08:37:11 Notes:HTN and hypercholester olemia. Medical History Condition Response Coronary Artery Disease N Other N Gout N Kidney Stones N Blood Diseases N Hyperthyroidism N Breast Cancer N Blood Transfusion N Depression N Hypothyroidism N Lung Disease N COPD N Developmental or Behavioral Disorders N Defects or Inherited Disease N Breast Problem N Difficulty Swallowing N Anesthesia Complications N Anxiety Disorder N Meniere's disease N Muscle, Joint, or Bone Problems N Vision or Eye Problems N Arthritis N Infertility N Polyps N Cancer N Stroke N Varicosities N Endometriosis N Bladder or Kidney Problems N High Cholesterol Y Liver Disease N Fibromyalgia N Headaches N Kidney Disease N Allergies/Hayfever N Heart Problems N Ear or Hearing Problems N Hospitalizations N Thyroid Problems N GI Problems Y ADD/ADHD N Skin Problems N Eating Disorder N Anemia N Constipation N Mental Illness N Ovarian Cancer N Diabetes N Bedwetting N Seizures/Epilepsy Y Tuberculosis N Eczema N Diverticulitis N Abuse/Domestic Violence N Asthma N Reflux/GERD N Hepatitis N Heart Disease N Pulmonary Embolism Y Pre-Eclampsia N Hypertension Y Chronic Ear Infections N Osteoporosis N Chicken Pox N Autism Spectrum Disorder (ASD) N Thrombophilias N Immunizations Vaccine Type Date Status Note Provider Nam e and Address Organization Details Recorded Time Influenza, high-dose, quadrivalent, PF 2 completed THEA alcocer [facility] 11/12/2023 14:47:09 Influenza, high-dose, quadrivalent, PF 2 completed THEA alcocer [facility] 11/12/2023 14:47:09 COVID-19 vaccine, vector-nr, rS-Ad26, PF, 0.5 mL 1 completed THEA CORONADO ORTEGA [facility] 11/12/2023 14:47:09 COVID-19, mRNA, LNP-S, bivalent, PF, 50 mcg/0.5 mL or 25mcg/0.25 mL dose 2 completed THEA IVONNE alcocer, [facility] 11/12/2023 14:47:09 Influenza, split virus, trivalent, preservative 0 completed Not Available [facility] 03/22/2023 02:29:47 pneumococcal polysaccharide PPV23 0 completed Not Available [facility] 03/22/2023 02:29:47 Past Encounters Encounter ID Performer Location Encounter Start Date Encounter Closed Date Diagnosis/Indication Diagnosis SNOMED-CT Code Diagnosis ICD10 Code Diagnosis Note [id number] Ann Marie Rousseau MD [facility] ([facility]) [address] [place] [phone] 10/07/2023 16:12:11 10/07/2023 17:21:33 Abnormal gait due to impairment of balance 108194317 R26.89 his last one broke with his fall Hospital i npatient stay within past 30 days 8258186185 106 Z76.89 Acute pulm onary embolism 414151754 I26.99 on eliquis [id number] Ann Marie Rousseau MD [facility] ([facility]) [address] [place] [phone] 5 11/12/2023 14:25:35 11/12/2023 16:40:01 Morbid obesity 941250877 E66.01 pt is always very unmotivate d, unfortunat marylou Seizure disorder 3993373 02 G40.909 Hypercholesterolemia 136 63968 E78.00 Essential hypertension 56526111 I10 Malaise and fatigue 2717 96394 R53.81 again I encouraged him to be more active and walk outside of his apt. his brother seems discourage d cause he cannot get him to do anything different either. I have considered depression but pt denies, he doesnt have any of that and is opposed to trying a mood medication . Pulmonary embolism 30959 003 I26.99 09/25/23. on eliquis. typically we would take him off after 3-6 months, but pt is very inactive and this was likely unprovoked , so in his case I am considerin g cont therapy... .we will re-assess his situation in 6 months. Abnormal g ait due to muscle weakness 911952247 M62.81 filled out form advisint pt have ground floor apt. I discussed that I expect him to walk outside of his new ground floor apartment daily. [id number] Ann Marie Rousseau MD [facility] ([facility]) [address] [place] [address] [phone] 5 05/13/2024 14:50:06 05/13/2024 16:00:29 Hypercholesterolemia 03828670 E78.00 pt never comes fasting, we will do nonfasting labs today as he will not return. 05/13/24 Gastroesop hageal reflux disease 664866667 K21.9 Hypertensive disorder 38 172747 I10 Seizure disorder 5854853 02 G40.909 controlled on lamictal. 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 ([facility]IT[facility] L) Triston Ryan [id number] Triston Ryan 10/01/2024 1 [employer] (MEDICARE REPLACEMENT/A DVANTAGE - PPO) Triston Ryan [id number] Triston Ryan Notes Date Note Type Note Provider Name and Address Organization Details Recorded Time 10/07/19 24 text/ht ml Annual WellnessReported bypatient.Physical Activity:does not exercise on a regular basis;decreased physical activity;poor physical condition;deconditioned due to sedentary lifestyle Additional Lifestyle Factors:no tobacco use here with his brotherthey had to call ambulance cause he fell down at home and could not get up to unlock his doortaken [facility] the [facility] and started on anticoagulation. does not have his med list, he has a nurse that we can contact but he does not know her name or contact information. he had an exercise bike that he has never used. Ann Marie Rousseau MD [address] [place] [address], [phone], [facility] 10/07/2023 17:20:52 11/12/19 24 text/ht ml FatigueReported bypatient.Severity:same Duration:chronic Associated Symptoms:depression;sleep disturbances;shortness of breath;concentration impairment;exertional fatigue;memory impairmentHypertensionReported bypatient.Alleviating Factors:medication Associated Symptoms:fatigue;exertional dyspnea;decreased exercise tolerance;muscle weakness here with his brotherneeds paper filled out for ground floor apartment accomdations.there is no elevator at his complexwhen he had his fall it was very hard getting him down the stairshis left knee always hurts Ann Marie Rousseau MD [address] [place] [address], [phone], [facility] 11/15/2023 11:01:34 05/13/20 24 text/ht ml Normal 6 month f/u Pt stated he is getting up and walking around more. Brother said He is going to have to move soon out of his apartment as they are moving everyone out and remodel it so I am not sure what is going on. Have you ever seen his feet with his socks off, they are terrible because he was born with clubbed feet I do not have sores on my feet they are just very dry. I have a big dry spot. Ann Marie Rousseau MD [address] [place], [address], [facility] - [facility], Kristina 05/13/2024 15:59:46
--- OUTSIDE RECORDS SUMMARY | 2025-03-07 11:43 | XMS_ITS | Encounter Summary ---
Author Organization [facility] Address [address] [place] [address] Care Team Providers Care Sewer Head Name Role Phone Ann Marie Maurer MD Primary Care Provider Encounter Details Date Type Department Care Team (Latest Contact Info) Description 05/05/2007 Outpatient Historical [facility] Neurology [address], [address] [place] [address] [place] [address] [place] [address] Other Convulsions (CMS/HCC) (Primary Dx); Memory Loss Social History Tobacco Use Types Packs/Day Years Used Date Smoking Tobacco: Never Assessed Sex and Gender Information Value Date Recorded Sex Assigned at Not on file 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
--- OUTSIDE RECORDS SUMMARY | 2025-03-07 11:43 | XMS_ITS | Encounter Summary ---
Author Organization [facility] Address [address] [place] [address] Care Team Providers Care Manufacturing Management Associate Name Role Phone Ann Marie Maurer MD Primary Care Provider Encounter Details Date Type Department Care Team (Latest Contact Info) Description 03/09/1998 Outpatient Historical [facility] [place] [address] [place] [address] Other convulsions (Primary Dx) Social History Tobacco Use Types Packs/Day Years Used Date Smoking Tobacco: Never Assessed Sex and Gender Information Value Date Recorded Sex Assigned at Not on file 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
--- OUTSIDE RECORDS SUMMARY | 2025-03-07 11:43 | XMS_ITS | Encounter Summary ---
Author Organization [facility] Address [address] [place] [address] Care Team Providers Care Speech Therapy Director Name Role Phone Ann Marie Maurer MD Primary Care Provider [phone] Encounter Details Date Type Department Care Team (Latest Contact Info) Description 11/07/[address] 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
--- OUTSIDE RECORDS SUMMARY | 2025-03-07 11:43 | XMS_ITS | Encounter Summary ---
Author Organization [facility] Address [address] [place] [address] Care Team Providers Care Plasterer Foreman Name Role Phone Ann Marie Maurer MD Primary Care Provider Encounter Details Date Type Department Care Team (Latest Contact Info) Description 11/05/2002 Outpatient Historical [facility] Neurology [address], [address] [place] [address] [place] [address] [place] [address] CONVULSIONS, OTHER (CMS/HCC) (Primary Dx) Social History Tobacco Use Types Packs/Day Years Used Date Smoking Tobacco: Never Assessed Sex and Gender Information Value Date Recorded Sex Assigned at Not on file 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
--- OUTSIDE RECORDS SUMMARY | 2025-03-07 11:44 | XMS_ITS | Encounter Summary ---
Author Organization [facility] Address [address] [place] [address] Care Team Providers Care Laboratory Chemist Name Role Phone Ann Marie Maurer MD Primary Care Provider Encounter Details Date Type Department Care Team (Latest Contact Info) Description 11/28/2004 Outpatient Historical [facility] Neurology [address], [address] [place] [address] Crystal Kathy Kareem, JACKSCREW WORKER [address] [place] [address] CONVULSIONS, OTHER (CMS/HCC) (Primary Dx); OTHER GENERAL SYMPTOMS Social History Tobacco Use Types Packs/Day Years Used Date Smoking Tobacco: Never Assessed Sex and Gender Information Value Date Recorded Sex Assigned at Not on file Legal Sex Male 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
--- NOTE | 2025-03-07 11:48 | CT_ITS ---
WS: [id number] CT ABDOMEN PELVIS TECHNIQUE: Noncontrast CT of the abdomen and pelvis with coronal and sagittal reformatted images. CLINICAL INFORMATION: flank pain COMPARISON: 2019. DLP: 1544.[address] scans at [facility] use at least one of these dose optimization techniques: automated exposure control; mA and/or kV adjustment per patient size (includes targeted exams where dose is matched to clinical indication); or iterative reconstruction. FINDINGS: No hydronephrosis in either kidney. No obstructing renal or ureteral calculi. Mild diffuse bladder wall thickening can be seen with chronic cystitis or bladder outlet obstruction. Lung bases are well aerated. Normal noncontrast liver and spleen. Splenic granulomas. Fatty atrophy of the pancreas. Adrenal glands are normal. Aortic calcification. Sigmoid diverticulosis. No evidence of acute diverticulitis. Tiny fat-containing umbilical hernia. Advanced spondylitic changes lumbar spine. No other acute findings. CT/CT kidney stone 77901 IMPRESSION: 1. No obstructing renal or ureteral calculi. No other nephrosis in either kidn ey. 2. Mild diffuse bladder wall thickening can be seen with chronic cystitis or b ladder outlet obstruction. Prostate measures approximately 3.3 cm. 3. No other acute findings.
[2025-03-07 11:56] LABS: Hematocrit 43.5 % (37-53); Hemoglobin 14.40 g/dL (11.27-16.99); Mean Corpuscular HGB Conc 33.1 g/dL (30-55); Mean Corpuscular Hemoglobin 27.7 pg (27-33); Mean Corpuscular Volume 83.8 fl (82-101); Nucleated Red Blood Cells % 0 %; Platelet Count 351 10^3/cmm (157-399); Red Blood Count 5.19 10^6/uL (3.85-5.65); White Blood Count 8.41 10^3/uL (3.29-11.43)
[2025-03-07 12:05] LABS: Glucose Urine UA Negative (Normal); Nitrate Urine Negative (Negative); Specific Gravity, Urine 1.021 (1.005-1.030)
[2025-03-07 12:07] LABS: Add Urine Microscopic? YES
[2025-03-07 12:08] LABS: Alanine Aminotransferase 9 U/L (0-41); Albumin Level 3.9 g/dL (3.5-5.2); Alkaline Phosphatase 104 U/L (40-130); Anion Gap 17.1 (5-19); Aspartate Amino Transferase 13 U/L (0-40); Blood Urea Nitrogen 6 mg/dL (8-23); Calcium 9.5 mg/dL (8.5-10.5); Carbon Dioxide 23 mmol/L (22-29); Chloride 101 mmol/L (98-107); Creatinine Clr Calc Pharmacy 118.2530; Globulin 3.0 g/dL (1.3-4.6); Glucose 133 mg/dL (65-115); Lipase 26 U/L (13-60); Osmolality Calculated 284 mOsm/kg (285-295); Potassium 4.1 mmol/L (3.5-5.1); Sodium 137 mmol/L (136-145); Total Protein 6.9 g/dL (6.6-8.7)
--- NOTE | 2025-03-07 12:09 | ED_ITS ---
HPI - Abdominal Pain 2 General: Chief Complaint: Abdominal Pain Stated Complaint: ab pain Time Seen by Provider: 03/07/25 11:33 History of Present Illness: 69-year-old male presents to the emergen cy room complaining of left flank pain with pain with burning and burning with urination for the last 3 days he also has urine has been quite dark. Patient relates she has had chronic back pain for the last couple of years that radiates down his left leg at times been getting worse recently. No urinary retention no fecal incontinence. He has a shooting pain but he still has full function. As to his abdominal pain he denies any vomiting or diarrhea. No hematochezia melena hematemesis. Associated Symptoms: Denies chills, dysuria and fever(s) Related Data Home Medications ?Medication ?Instructions ?Recorded ?Confirmed atorvastatin 80 mg tablet 80 mg PO DAILY 03/28/2005/25 docusate sodium 100 mg capsule 100 mg PO BID PRN Const ipation 03/28/20 06/07/24 metoprolol succinate 50 mg 50 mg PO DAILY 03/28/20 tablet,extended release 24 hr pantoprazole 40 mg tablet,delayed 40 mg PO DAILY 03/2806/07/24 release polyethylene glycol 3350 17 17 gm PO DAILY 03/28/20 gram/dose oral powder (Miralax) furosemide 40 mg tablet 40 mg PO DAILY 09/25/2305/25 Previous Rx's ?Medication ?Instructions ?Recorded lamotrigine 200 mg tablet 200 mg PO BID #60 tabs 09/11 albuterol sulfate 90 mcg/actuation 1 inh inhalation Q6 H PRN shortness 09/28/23 aerosol inhaler of breath or wheezing #6.7 g lenore apixaban 5 mg tablet (Eliquis) 5 mg PO BID #120 tabs 0 09/28/23 potassium chloride 20 mEq 20 meq PO DAILY #30 tabs 12/16 tablet,extended release(part/cryst) tamsulosin 0.4 mg capsule 0.4 mg PO DAILY #60 caps 12/16 methocarbamol 500 mg tablet 1,000 mg (2 x 500 mg) PO Q 8H #30 11/24/23 tabs Allergies Allergy/AdvReac Type Severity Reaction Status Date / Time levetiracetam (From [facility]) Allergy Unknown Unknown Verified 06/07/24 14:23 Review of Systems 2 Const: Denies: fever(s) or chills Card: Denies: chest pain Resp: Denies: dyspnea GI: Denies: abdominal pain : Denies: dysuria, urinary frequency or urinary urgency Musc: Denies: neck pain or back pain Skin/Breast: Denies: rash PFSH ED 2 PFSH: Medical History Acute encephalopathy Mild dehydration Acute hypoxemic respiratory failure Leg pain Pulmonary embolism COVID-19 Seizure disorder GERD (gastroesophageal reflux disease) Hypertension Hyperlipidemia Seizures H/O appendicitis Surgical History History of appendectomy H/O foot surgery Family History Other CAD (coronary artery disease) Hypertension Social History Smoking and tobacco/nicotine status: never used tobacco/nicotine Alcohol intake: never Physical Exam 2 Const: GENERAL APPEARANCE: cooperative ORIENTATION/CONSCIOUSNESS: Yes awake, Yes oriented to person, Yes oriented to place and Yes oriented to time HENMT: COMMON NORMALS: normocephalic, atraumatic and hearing grossly normal bilaterally HEAD & SCALP: normocephalic and atraumatic Resp: COMMON NORMALS: normal respiratory effort, No retractions, No use of accessory muscles and clear to auscultation bilaterally AUSCULTATION: clear to auscultation bilaterally Cardio: COMMON NORMALS: regular rate, regular rhythm and No murmurs present (Cardio) RATE: regular rate RHYTHM: regular rhythm GI: COMMON NORMALS: Soft to palpation and No hepatosplenomegaly present A USCULTATION: Yes normoactive bowel sounds PALPATION: Yes Soft to palpation, No Tenderness to palpation present (GI), No Guarding due to palpation present (GI) and Yes No hepatosplenomegaly present Extremity: COMMON NORMALS: normal to inspection, capillary refill normal, no clubbing, cyanosis or edema, no calf tenderness and no pedal edema Neuro: SENSORIUM/ORIENTATION: Yes oriented to person, Yes oriented to place and Yes oriented to time Skin: COMMON NORMALS: no rashes or lesions noted GENERAL SKIN EXAM: no rashes or lesions noted Course 2 Vital Signs: Vital signs: Vital Signs Temperature 98.2 F 03/07/25 11:35 Pulse Rate 61 03/07/25 12:41 Respiratory Rate 18 03/07/25 11:35 Blood Pressure 113/56 03/07/25 11:35 Pulse Oximetry 96 03/07/25 12:41 Oxygen Delivery Me thod Room Air 03/07/25 12:41 MDM - Abdominal Pain Medical Decision Making No signs of cystitis. The CT does not show any acute pathology. I think he does have chronic back and leg pain which he complained about today this been going on for some years recommend he follow-up with his primary care doctor regarding this he has no red flag symptoms and he has not had any trauma. Medical Records I reviewed the patient's medical records. Lab Data I reviewed the patient's lab results. 03/07/25 11:13 03/07/25 11:13 Labs/Radiology: Radiology Impressions Abdomen/Pelvis CT 03/07/25 11:48 IMPRESSION: 1. No obstructing renal or ureteral calculi. No other nephrosis in either kidney. 2. Mild diffuse bladder wall thickening can be seen with chronic cystitis or bladder outlet obstruction. Prostate measures approximately 3.3 cm. 3. No other acute findings. Laboratory Results WBC 8.41 10^3/uL (3.29-11.43) 03/07/25 11:13 RBC 5.19 10^6/uL (3.85-5.65) 03/07/25 11:13 Hgb 14.40 g/dL (11.27-16.99) 03/07/25 11:13 Hct 43.5 % (37-53) 03/07/25 11:13 MCV 83.8 fl (82-101) 03/07/25 11:13 MCH 27.7 pg (27-33) 03/07/25 11:13 MCHC 33.1 g/dL (30-55) 03/07/25 11:13 RDW 13.5 % (12.1-15.1) 03/07/25 11:13 Plt Count 351 10^3/cmm (157-399) 03/07/25 11:13 MPV 9.5 fL (7.4-10.4) 03/07/25 11:13 Neut % (Auto) 54.1 % 03/07/25 11:13 Lymph % (Auto) 32.8 % 03/07/25 11:13 [place] % (Auto) 8.3 % 03/07/25 11:13 Eos % (Auto) 3.4 % 03/07/25 11:13 Baso % (Auto) 0.7 % 03/07/25 11:13 Neut # (Auto) 4.54 10^3/uL (1.8-7.7) 03/07/25 11:13 Lymph # (Auto) 2.8 10^3/uL (0.8-4.8) 03/07/25 11:13 [place] # (Auto) 0.7 10^3/uL (0.2-0.9) 03/07/25 11:13 Eos # (Auto) 0.3 10^3/uL (0.0-0.8) 03/07/25 11:13 Baso # (Auto) 0.1 10^3/uL (0.0-0.1) 03/07/25 11:13 Nucleated RBC % (auto) 0 % 03/07/25 11:13 Nucleated RBCs # 0.0 /100WBC 03/07/25 11:13 Sodium 137 mmol/L (136-145) 03/07/25 11:13 Potassium 4.1 mmol/L (3.5-5.1) 03/07/25 11:13 Chloride 101 mmol/L (98-107) 03/07/25 11:13 Carbon Dioxide 23 mmol/L (22-29) 03/07/25 11:13 Anion Gap 17.1 (5-19) 03/07/25 11:13 BUN 6 mg/dL (8-23) L 03/07/25 11:13 Creatinine 0.8 mg/dL (0.7-1.2) 03/07/25 11:13 GFR Calculation 96.1 mL/min (90-130) 03/07/25 11:13 Glucose 133 mg/dL (65-115) H 03/07/25 11:13 Calculated Osmolality 284 mOsm/kg (285-295) L 03/07/25 11:13 Calcium 9.5 mg/dL (8.5-10.5) 03/07/25 11:13 Total Bilirubin 0.6 mg/dL (0.15-1.2) 03/07/25 11:13 AST 13 U/L (0-40) 03/07/25 11:13 ALT 9 U/L (0-41) 03/07/25 11:13 Alkaline Phosphatase 104 U/L (40-130) 03/07/25 11:13 Total Protein 6.9 g/dL (6.6-8.7) 03/07/25 11:13 Albumin 3.9 g/dL (3.5-5.2) 03/07/25 11:13 Globulin 3.0 g/dL (1.3-4.6) 03/07/25 11:13 Lipase 26 U/L (13-60) 03/07/25 11:13 Urine Color Yellow (Yellow) 03/07/25 11:51 Urine Appearance Clear (CLEAR) 03/07/25 11:51 Urine pH 7.5 (5-7) 03/07/25 11:51 Ur Specific [place] 1.021 (1.005-1.030) 03/07/25 11:51 Urine Protein Trace (Negative) A 03/07/25 11:51 Urine Glucose (UA) Negative (Normal) 03/07/25 11:51 Urine Ketones Trace (Negative) 03/07/25 11:51 Urine Blood Negative (Negative) 03/07/25 11:51 Urine Nitrate Negative (Negative) 03/07/25 11:51 Urine Bilirubin Negative (Negative) 03/07/25 11:51 Urine Urobilinogen 1.0 mg/dL (Negative) 03/07/25 11:51 Ur Leukocyte Esterase Negative (Negative) 03/07/25 11:51 Urine RBC 0-2 /hpf (0-2) 03/07/25 11:51 Urine WBC 0-5 /hpf (0-5) 03/07/25 11:51 Ur Squamous Epith Cells 0-5 /hpf (0-5) 03/07/25 11:51 Amorphous Sediment Not Reportable 03/07/25 11:51 Urine Bacteria None seen /hpf (NONE) 03/07/25 11:51 Hyaline Casts 0-4 /lpf H 03/07/25 11:51 All radiology interpretation(s) finalized by discharge Discharge Plan Discharge Patient Disposition: Home Clinical Impression: Abdominal pain, Chronic left-sided lumbar radiculopathy, BPH (benign prostatic hyperplasia) Condition: Stable Prescriptions: No Action atorvastatin 80 mg tablet 80 mg PO DAILY metoprolol succinate 50 mg tablet extended release 24 hr 50 mg PO DAILY polyethylene glycol 3350 [Miralax] 17 gram/dose powder 17 gm PO DAILY pantoprazole 40 mg tablet,delayed release (DR/EC) 40 mg PO DAILY docusate sodium 100 mg capsule 100 mg PO BID PRN (Reason: Constipation) lamotrigine 200 mg tablet 200 mg PO BID Qty: 60 0RF furosemide 40 mg tablet 40 mg PO DAILY tamsulosin 0.4 mg Capsule 0.4 mg PO DAILY Qty: 60 2RF albuterol sulfate 90 mcg/actuation HFA aerosol inhaler 1 inh inhalation Q6H PRN (Reason: shortness of breath or wheezing) Qty: 6.7 2RF Eliquis 5 mg tablet 5 mg PO BID Qty: 120 2RF Rx Instructions: 10 mg twice daily for 7 days then 5 mg twice daily for 3 months potassium chloride 20 mEq tablet,ER particles/crystals 20 meq PO DAILY Qty: 30 0RF methocarbamol 500 mg tablet 1,000 mg PO Q8H Qty: 30 0RF Discharge Orders: Discharge ED (Routine); Ordered 03/07/25 Ordered By: Alberto Farmer Referrals: Ann Marie Maurer MD [Primary Care Provider, Family Practice] Discharge Diet: Usual diet Discharge Activity: Increase activity as tolerated Patient Instructions: Abdominal Pain (ED), Opioid Safety, Pain Management, Patient Portal & Oc Instructions Activity Restrictions/Additional Instructions: Thank you for choosing [facility] for your healthcare needs today. It is very important that you follow up as instructed or that you return to the Emergency Department should you have concerns or if your condition changes or worsens in any way. You were seen in the emergency room with complaints of back pain and abdominal pain evaluation for your abdominal pain does not show any emergent causes. He also complained of back pain with pain radiating to your left leg. You related that this has been going on for a very long period of time as much is a couple of years. Recommend that you follow-up with your primary care doctor regarding this to see if they recommend further treatment options such as physical therapy or further evaluation such as advanced imaging. Print Language: Citizen Of [place] Coding Level of Care Code ED Reinforcing Metal Worker for Chg Fwd
[2025-03-07 12:41] VITALS: PULSE 61; O2SAT 96
== END 2025-03-07 14:09 | disposition home or self-care (01) ==
PROVIDERS: Emergency Provider Family Medicine; PCP Family Medicine
DX: R10.9 Unspecified abdominal pain (principal); M54.16 Radiculopathy, lumbar region; N40.0 Benign prostatic hyperplasia without lower urinary tract symptoms; Z79.01 Long term (current) use of anticoagulants; E78.5 Hyperlipidemia, unspecified; I10 Essential (primary) hypertension
CPT/HCPCS: 36415; 74176; 80053; 81001; 83690; 85025; 99284

== ENCOUNTER 2025-06-15 12:27 | Emergency (ER) | payer MEDICARE, MEDICAID, SELFPAY ==
[2025-06-15 12:30] VITALS: BP 112/64; PULSE 77; RESP 20; TEMP 36.9; O2SAT 93; BMI 45.9
[2025-06-15 12:35] VITALS: BP 112/64
--- NOTE | 2025-06-15 12:45 | XRR_ITS ---
PROCEDURE INFORMATION: Exam: XR Right Knee Exam date and time: 06/15/2025 12:48 PM Age: 69 years old Clinical indication: Injury or trauma; Fall; Blunt trauma; Knee; Right TECHNIQUE: Imaging protocol: Radiologic exam of the right knee. Views: 3 views. COMPARISON: No relevant prior studies available. FINDINGS: Bones/joints: Negative for acute bone abnormality. Soft tissues: Normal. XR/XR knee RT 3V* [id number] IMPRESSION: No acute findings.
--- NOTE | 2025-06-15 12:45 | XR_ITS ---
WS: [id number] Right ankle, 3 views, 06/15/2025 Clinical Data: trauma Comparison: None. Findings: No fractures or dislocations are seen. There is narrowing and irregularity of the ankle mortise. There is fusion of the talocalcaneal articulation with lateral orthopedic kyree. Talar osteoarthritis is present. There is soft tissue swelling over the medial malleolus. XR/XR ankle RT min 3V* [id number] Impression: 1. Negative for fracture or dislocation. 2. 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 3. Osteoarthritis of the ankle mortise. 4. Soft tissue swelling over medial malleolus.
--- NOTE | 2025-06-15 12:56 | ECG_ITS ---
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 Measurements Intervals [place] Rate: 74 P: 4 NC: 186 QRS: -2 QRSD: 106 T: 1 QT: 413 QTc: 461 Interpretive Statements SINUS RHYTHM LOW QRS VOLTAGE IN PRECORDIAL LEADS [QRS DEFLECTION < 1.0 mV IN CHEST LEADS] Compared to ECG 09/25/2023 14:51:16 Sinus arrhythmia no longer present Myocardial infarct finding no longer present Electronically Signed On 06-15-2025 16:52:36 CDT by Bong Steen M.D. [email or web address]
--- NOTE | 2025-06-15 12:57 | XR_ITS ---
WS: [id number] Portable AP upright chest, 06/15/2025 Clinical Data: dyspnea/cough Comparison: Portable chest, 09/25/2023 Findings: There is a patchy opacity in the retrocardiac region which could represent atelectasis, pneumonia and/or effusion. No nodules or masses are seen. The heart is enlarged. The pulmonary vascularity is not increased. No pneumothorax is seen. The aortic arch shows tortuosity. There are calcified granulomas in both lungs. Monitor leads are on the chest wall. XR/XR chest 1V portable [id number] Impression: 1. Patchy opacity in retrocardiac region. 2. Atherosclerosis and cardiomegaly.
[2025-06-15 13:05] VITALS: BP 115/63; PULSE 74; O2SAT 92
[2025-06-15 13:33] VITALS: BP 131/87; PULSE 74; O2SAT 93
--- OUTSIDE RECORDS SUMMARY | 2025-06-15 13:37 | XMS_ITS | Encounter Summary ---
Author Organization [facility] Address [address] [place] [address] Care Team Providers Care Mining Speculator Name Role Phone Ann Marie Maurer MD Primary Care Provider Encounter Details Date Type Department Care Team (Latest Contact Info) Description 12/24/2005 Outpatient Historical [facility] [address], [address] [place] [address] [place] [address] [place] [address] Other Convulsions (CMS/HCC) (Primary Dx) Social History Tobacco Use Types Packs/Day Years Used Date Smoking Tobacco: Never Assessed Sex and Gender Information Value Date Recorded Sex Assigned at Not on file 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
--- OUTSIDE RECORDS SUMMARY | 2025-06-15 13:38 | XMS_ITS | Encounter Summary ---
Author Organization [facility] Address [address] [place] [address] Care Team Providers Care Surgery Center Administrator Name Role Phone Ann Marie Maurer MD Primary Care Provider Encounter Details Date Type Department Care Team (Latest Contact Info) Description 05/25/2001 Outpatient Historical [facility] [address], [address] [place] [address] [place] [address] [place] [address] Other convulsions (Primary Dx) Social History Tobacco Use Types Packs/Day Years Used Date Smoking Tobacco: Never Assessed Sex and Gender Information Value Date Recorded Sex Assigned at Not on file 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
--- OUTSIDE RECORDS SUMMARY | 2025-06-15 13:38 | XMS_ITS | Encounter Summary ---
Author Organization [facility] Address [address] [place] [address] Care Team Providers Care Manager Food Beverage Name Role Phone Ann Marie Maurer MD Primary Care Provider Encounter Details Date Type Department Care Team (Latest Contact Info) Description 11/07/2003 Outpatient Historical [facility] [address], [address] [place] [address] [place] [address] [place] [address] CONVULSIONS, OTHER (CMS/HCC) (Primary Dx) Social History Tobacco Use Types Packs/Day Years Used Date Smoking Tobacco: Never Assessed Sex and Gender Information Value Date Recorded Sex Assigned at Not on file Legal Sex Male 5:21 AM [employer] Gender Identity Not on file Sexual Orientation Not on file documented as of this encounter Plan of Treatment Not on file documented as of this encounter Visit Diagnoses Diagnosis Other convulsions- Primary documented in this encounter Care Teams Manager Food Beverage Relationship Specialty Start Date End Date Ann Marie Maurer MD [address] [place] [address] PCP - General Family Practice 01/01/18 documented as of this encounter
--- OUTSIDE RECORDS SUMMARY | 2025-06-15 13:38 | XMS_ITS | Encounter Summary ---
Author Organization [facility] Address [address] [place] [address] Care Team Providers Care Custom Shoe Designer And Maker Name Role Phone Ann Marie Maurer MD Primary Care Provider Encounter Details Date Type Department Care Team (Latest Contact Info) Description 11/05/[address] 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
--- OUTSIDE RECORDS SUMMARY | 2025-06-15 13:38 | XMS_ITS | Encounter Summary ---
Author Organization [facility] Address [address] [place] [address] Care Team Providers Care Anger Control Counselor Name Role Phone Ann Marie Maurer MD Primary Care Provider [phone] Encounter Details Date Type Department Care Team (Latest Contact Info) Description 11/07/2003 Outpatient Historical [facility] [place] 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
--- OUTSIDE RECORDS SUMMARY | 2025-06-15 13:38 | XMS_ITS | Clinical Summary ---
Author Organization [facility] Address [address] [place]: Epic Prelude ADT [place] [address] Care Team Providers Care Metal Tank Builder Name Role Phone Ann Marie Maurer MD [...] on file Legal Sex Male 6:41 AM DIRECTOR OF AUDIOLOGY Gender Identity Not on file Sexual Orientation [...] - 1-dose 75+ series) 2031 Care Teams Metal Tank Builder Relationship Specialty Start Date End Date Ann Marie Maurer MD [address] [place] [address] PCP - General Family Practice 01/01/18
--- OUTSIDE RECORDS SUMMARY | 2025-06-15 13:38 | XMS_ITS | Clinical Summary ---
Author Organization [facility] Address [address] [place] [address] Care Team Providers Care Integration Developer Name Role Phone Ann Marie Maurer MD Primary Care Provider Allergies No known active allergies Medications atorvastatin (LIPITOR) 40 mg tablet 4 Active fluticasone (FLONASE) 50 mcg/spray [place], Suspension 4 Active metoprolol succinate ER 24 [...] on file Legal Sex Male 5:21 AM DAM TENDER ASSISTANT Gender Identity Not on file Sexual [...] A AND B [place]ICA[place] Care Teams Integration Developer Relationship Specialty Start Date End Date Ann Marie Maurer MD [address] [place] [address] PCP - General Family Practice 01/01/18
--- OUTSIDE RECORDS SUMMARY | 2025-06-15 13:38 | XMS_ITS | Encounter Summary ---
Author Organization [facility] Address [address] [place] [address] Care Team Providers Care Vp Business Development Name Role Phone Ann Marie Maurer MD Primary Care Provider Encounter Details Date Type Department Care Team (Late st Contact Info) Description 05/16/2000 Outpatient Historical [facility] [place] [address] [place] [address] Encounter for long-term (current) use of other medications (Primary Dx); Other convulsions Social History Tobacco Use Types Packs/Day Years Used Date Smoking Tobacco: Never Assessed Sex and Gender Information Value Date Recorded Sex Assigned at Not on file 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
--- OUTSIDE RECORDS SUMMARY | 2025-06-15 13:38 | XMS_ITS | Encounter Summary ---
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
--- OUTSIDE RECORDS SUMMARY | 2025-06-15 13:38 | XMS_ITS | Encounter Summary ---
Author Organization [facility] Address [address] [place] [address] Care Team Providers Care Waiter/Waitress Club Name Role Phone Ann Marie Maurer MD Primary Care Provider Encounter Details Date Type Department Care Team (Latest Contact Info) Description 05/05/2007 Outpatient Historical [facility] Neurology [address], [address] [place] [address] [place] [address] [place] [address] Other Convulsions (CMS/HCC) (Primary Dx); Memory Loss Social History Tobacco Use Types Packs/Day Years Used Date Smoking Tobacco: Never Assessed Sex and Gender Information Value Date Recorded Sex Assigned at Not on file 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
--- OUTSIDE RECORDS SUMMARY | 2025-06-15 13:38 | XMS_ITS | Encounter Summary ---
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
--- OUTSIDE RECORDS SUMMARY | 2025-06-15 13:38 | XMS_ITS | Encounter Summary ---
Author Organization [facility] Address [address] [place] [address] Care Team Providers Care Battery Filler Name Role Phone Ann Marie Maurer MD Primary Care Provider Encounter Details Date Type Department Care Team (Latest Contact Info) Description 11/05/2002 Outpatient Historical [facility] 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
--- OUTSIDE RECORDS SUMMARY | 2025-06-15 13:38 | XMS_ITS | Encounter Summary ---
Author Organization [facility] Address [address] [place] [address] Care Team Providers Care Double End Chucking Machine Operator Name Role Phone Ann Marie Maurer MD Primary Care Provider [phone] Encounter Details Date Type Department Care Team (Latest Contact Info) Description 05/16/2000 Outpatient Historical [facility] [place] [address] [place] [address] Other convulsions (Primary Dx) Social History Tobacco Use Types Packs/Day Years Used Date Smoking Tobacco: Never Assessed Sex and Gender Information Value Date Recorded Sex Assigned at Not on file 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
--- OUTSIDE RECORDS SUMMARY | 2025-06-15 13:38 | XMS_ITS | Encounter Summary ---
Author Organization [facility] Address [address] [place] [address] Care Team Providers Care Global Consumer Sector Vice President Name Role Phone Ann Marie Maurer MD Primary Care Provider [phone] Encounter Details Date Type Department Care Team (Latest Contact Info) Description 11/28/2004 Outpatient Historical [facility] Neurology [address] [place] [address] Crystal Kathy Kareem, SAILING INSTRUCTOR [address] [place] [address] CONVULSIONS, OTHER (CMS/HCC) (Primary Dx); OTHER GENERAL SYMPTOMS Social History Tobacco Use Types Packs/Day Years Used Date Smoking Tobacco: Never Assessed Sex and Gender Information Value Date Recorded Sex Assigned at Not on file 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
--- OUTSIDE RECORDS SUMMARY | 2025-06-15 13:38 | XMS_ITS | Encounter Summary ---
Author Organization [facility] Address [address] [place] [address] Care Team Providers Care Relationship Banker Name Role Phone Ann Marie Maurer MD Primary Care Provider Encounter Details Date Type Department Care Team (Latest Contact Info) Description 03/09/1998 Outpatient Historical [facility] [place] [place] [address] [place] [address] Other convulsions (Primary Dx) Social History Tobacco Use Types Packs/Day Years Used Date Smoking Tobacco: Never Assessed Sex and Gender Information Value Date Recorded Sex Assigned at Not on file 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
--- OUTSIDE RECORDS SUMMARY | 2025-06-15 13:38 | XMS_ITS | Encounter Summary ---
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
[2025-06-15 13:56] LABS: Hematocrit 46.9 % (37-53); Hemoglobin 15.10 g/dL (11.27-16.99); Mean Corpuscular HGB Conc 32.2 g/dL (30-55); Mean Corpuscular Hemoglobin 28.2 pg (27-33); Mean Corpuscular Volume 87.7 fl (82-101); Nucleated Red Blood Cells % 0 %; Platelet Count 349 10^3/cmm (157-399); Red Blood Count 5.35 10^6/uL (3.85-5.65); White Blood Count 10.38 10^3/uL (3.29-11.43)
[2025-06-15 14:08] LABS: Glucose Urine UA Negative (Normal); Nitrate Urine Negative (Negative); Specific Gravity, Urine 1.010 (1.005-1.030)
[2025-06-15 14:10] LABS: Add Urine Microscopic? YES
[2025-06-15 14:20] VITALS: BP 140/56; PULSE 75; O2SAT 93
[2025-06-15 14:50] LABS: Alanine Aminotransferase 17 U/L (0-41); Albumin Level 4.0 g/dL (3.5-5.2); Alkaline Phosphatase 137 U/L (40-130); Aspartate Amino Transferase 20 U/L (0-40); Blood Urea Nitrogen 5 mg/dL (8-23); Calcium 9.8 mg/dL (8.5-10.5); Carbon Dioxide 21 mmol/L (22-29); Chloride 98 mmol/L (98-107); Creatinine Clr Calc Pharmacy 127.3250; Globulin 3.3 g/dL (1.3-4.6); Glucose 114 mg/dL (65-115); Osmolality Calculated 282 mOsm/kg (285-295); Sodium 137 mmol/L (136-145); Total Protein 7.3 g/dL (6.6-8.7)
[2025-06-15 14:58] LABS: Anion Gap 21.8 (5-19); Potassium 3.8 mmol/L (3.5-5.1)
--- NOTE | 2025-06-15 15:08 | ED_ITS ---
HPI - Fall 2 General: Chief Complaint: Fall Stated Complaint: Fall Time Seen by Provider: 06/15/25 12:37 History of Present Illness: 61-year-old male presents emergency room after a fall patient is reporting increased weakness. He lives at home alone he uses a power lift chair. Electricity went out and he tried to get out of the chair unassisted resulting in falling this morning. Patient has a history of COPD as well he arrived in the emergency room with sat in the low 90s improved with a nebulizer. He denies any chest pain or abdominal pain is complaining of some right knee and ankle pain. Associated symptoms-after fall: Denies abdominal pain, chest pain or neck pain Related Data Home Medications ?Medication ?Instructions ?Recorded ?Confirmed atorvastatin 80 mg tablet 80 mg PO DAILY 03/28/2005/26 metoprolol succinate 50 mg 50 mg PO DAILY 03/28/20 tablet,extended release 24 hr pantoprazole 40 mg tablet,delayed 40 mg PO DAILY 03/2806/15/25 release furosemide 40 mg tablet 40 mg PO DAILY 09/25/2305/26 escitalopram oxalate 10 mg tablet 10 mg PO DAILY 06/1506/15/25 ondansetron HCl 4 mg tablet 4 mg PO Q6H PRN Nausea And Vomiting 06/15/25 06/15/25 zolpidem 5 mg tablet 5 mg PO BEDTIME 06/15/25 Previous Rx's ?Medication ?Instructions ?Recorded lamotrigine 200 mg tablet 200 mg PO BID #60 tabs 09/11 potassium chloride 20 mEq 20 meq PO DAILY #30 tabs 12/16 tablet,extended release(part/cryst) tamsulosin 0.4 mg capsule 0.4 mg PO DAILY #60 caps 12/16 Allergies Allergy/AdvReac Type Severity Reaction Status Date / Time levetiracetam (From [facility]) Allergy Unknown Unknown Verified 06/07/24 14:23 Review of Systems 2 Const: Denies: fever(s) or chills Card: Denies: chest pain Resp: Denies: dyspnea GI: Denies: abdominal pain : Denies: dysuria, urinary frequency or urinary urgency Musc: Denies: neck pain or back pain Skin/Breast: Denies: rash PFSH ED 2 PFSH: Medical History Acute encephalopathy Mild dehydration Acute hypoxemic respiratory failure Leg pain Pulmonary embolism COVID-19 Seizure disorder GERD (gastroesophageal reflux disease) Hypertension Hyperlipidemia Seizures H/O appendicitis Surgical History History of appendectomy H/O foot surgery Family History Other CAD (coronary artery disease) Hypertension Social History Smoking and tobacco/nicotine status: never used tobacco/nicotine Alcohol intake: never Physical Exam 2 Const: COMMON NORMALS: no acute distress GENERAL APPEARANCE: cooperative and comfortable ORIENTATION/CONSCIOUSNESS: Yes awake, Yes oriented to person, Yes oriented to place and Yes oriented to time HENMT: COMMON NORMALS: normocephalic, atraumatic and hearing grossly normal bilaterally HEAD & SCALP: normocephalic and atraumatic Resp: COMMON NORMALS: normal respiratory effort, No retractions, No use of accessory muscles and clear to auscultation bilaterally AUSCULTATION: clear to auscultation bilaterally Cardio: COMMON NORMALS: regular rate, regular rhythm and No murmurs present (Cardio) RATE: regular rate RHYTHM: regular rhythm GI: COMMON NORMALS: Soft to palpation and No hepatosplenomegaly present A USCULTATION: Yes normoactive bowel sounds PALPATION: Yes Soft to palpation, No Tenderness to palpation present (GI), No Guarding due to palpation present (GI) and Yes No hepatosplenomegaly present Extremity: COMMON NORMALS: normal to inspection, capillary refill normal, no clubbing, cyanosis or edema, no calf tenderness and no pedal edema Neuro: SENSORIUM/ORIENTATION: Yes oriented to person, Yes oriented to place and Yes oriented to time Skin: COMMON NORMALS: no rashes or lesions noted GENERAL SKIN EXAM: no rashes or lesions noted Course 2 Vital Signs: Vital signs: Vital Signs Temperature 98.4 F 06/15/25 12:30 Pulse Rate 81 06/15/25 15:26 Respiratory Rate 18 06/15/25 15:26 Blood Pressure 130/80 06/15/25 15:26 Pulse Oximetry 95 06/15/25 15:26 Oxygen Delivery Me thod Room Air 06/15/25 14:20 MDM - Fall Medical Decision Making Patient seen emergency room with fall x-rays were negative for acute fracture. There is questionable retrocardiac infiltrate however patient has a normal white count he has no cough. He is oxygen saturation was good on room air mid and upper 90s. He did improve with nebulizers. Given lack of symptoms did not treat at this time. Lab Data 06/15/25 13:19 06/15/25 13:19 Radiology Impressions Ankle X-Ray 06/15/25 12:45 Impression: 1. Negative for fracture or dislocation. 2. 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 3. Osteoarthritis of the ankle mortise. 4. Soft tissue swelling over medial malleolus. Knee X-Ray 06/15/25 12:45 IMPRESSION: No acute findings. Chest X-Ray 06/15/25 12:57 Impression: 1. Patchy opacity in retrocardiac region. 2. Atherosclerosis and cardiomegaly. Laboratory Results WBC 10.38 10^3/uL (3.29-11.43) 06/15/25 13:19 RBC 5.35 10^6/uL (3.85-5.65) 06/15/25 13:19 Hgb 15.10 g/dL (11.27-16.99) 06/15/25 13:19 Hct 46.9 % (37-53) 06/15/25 13:19 MCV 87.7 fl (82-101) 06/15/25 13:19 MCH 28.2 pg (27-33) 06/15/25 13:19 MCHC 32.2 g/dL (30-55) 06/15/25 13:19 RDW 13.1 % (12.1-15.1) 06/15/25 13:19 Plt Count 349 10^3/cmm (157-399) 06/15/25 13:19 MPV 10.0 fL (7.4-10.4) 06/15/25 13:19 Neut % (Auto) 66.2 % 06/15/25 13:19 Lymph % (Auto) 24.2 % 06/15/25 13:19 [place] % (Auto) 5.9 % 06/15/25 13:19 Eos % (Auto) 2.2 % 06/15/25 13:19 Baso % (Auto) 0.6 % 06/15/25 13:19 Neut # (Auto) 6.88 10^3/uL (1.8-7.7) 06/15/25 13:19 Lymph # (Auto) 2.5 10^3/uL (0.8-4.8) 06/15/25 13:19 [place] # (Auto) 0.6 10^3/uL (0.2-0.9) 06/15/25 13:19 Eos # (Auto) 0.2 10^3/uL (0.0-0.8) 06/15/25 13:19 Baso # (Auto) 0.1 10^3/uL (0.0-0.1) 06/15/25 13:19 Nucleated RBC % (auto) 0 % 06/15/25 13:19 Nucleated RBCs # 0.0 /100WBC 06/15/25 13:19 Sodium 137 mmol/L (136-145) 06/15/25 13:19 Potassium 3.8 mmol/L (3.5-5.1) 06/15/25 13:19 Chloride 98 mmol/L (98-107) 06/15/25 13:19 Carbon Dioxide 21 mmol/L (22-29) L 06/15/25 13:19 Anion Gap 21.8 (5-19) H 06/15/25 13:19 BUN 5 mg/dL (8-23) L 06/15/25 13:19 Creatinine 0.7 mg/dL (0.7-1.2) 06/15/25 13:19 GFR Calculation 112.1 mL/min (90-130) 06/15/25 13:19 Glucose 114 mg/dL (65-115) 06/15/25 13:19 Calculated Osmolality 282 mOsm/kg (285-295) L 06/15/25 13:19 Calcium 9.8 mg/dL (8.5-10.5) 06/15/25 13:19 Total Bilirubin 0.7 mg/dL (0.15-1.2) 06/15/25 13:19 AST 20 U/L (0-40) 06/15/25 13:19 ALT 17 U/L (0-41) 06/15/25 13:19 Alkaline Phosphatase 137 U/L (40-130) H 06/15/25 13:19 Total Protein 7.3 g/dL (6.6-8.7) 06/15/25 13:19 Albumin 4.0 g/dL (3.5-5.2) 06/15/25 13:19 Globulin 3.3 g/dL (1.3-4.6) 06/15/25 13:19 Urine Color Yellow (Yellow) 06/15/25 14:03 Urine Appearance Clear (CLEAR) 06/15/25 14:03 Urine pH 7.0 (5-7) 06/15/25 14:03 Ur Specific [place] 1.010 (1.005-1.030) 06/15/25 14:03 Urine Protein Negative (Negative) 06/15/25 14:03 Urine Glucose (UA) Negative (Normal) 06/15/25 14:03 Urine Ketones Negative (Negative) 06/15/25 14:03 Urine Blood Negative (Negative) 06/15/25 14:03 Urine Nitrate Negative (Negative) 06/15/25 14:03 Urine Bilirubin Negative (Negative) 06/15/25 14:03 Urine Urobilinogen 2.0 mg/dL (Negative) H 06/15/25 14:03 Ur Leukocyte Esterase Negative (Negative) 06/15/25 14:03 Urine RBC 0-2 /hpf (0-2) 06/15/25 14:03 Urine WBC 0-5 /hpf (0-5) 06/15/25 14:03 Ur Squamous Epith Cells 0-5 /hpf (0-5) 06/15/25 14:03 Amorphous Sediment Not Reportable 06/15/25 14:03 Urine Bacteria None seen /hpf (NONE) 06/15/25 14:03 Hyaline Casts 2.05 /lpf 06/15/25 14:03 All radiology interpretation(s) finalized by discharge Discharge Plan Discharge Patient Disposition: Home Clinical Impression: Fall Condition: Stable Prescriptions: No Action atorvastatin 80 mg tablet 80 mg PO DAILY metoprolol succinate 50 mg tablet extended release 24 hr 50 mg PO DAILY pantoprazole 40 mg tablet,delayed release (DR/EC) 40 mg PO DAILY lamotrigine 200 mg tablet 200 mg PO BID Qty: 60 0RF furosemide 40 mg tablet 40 mg PO DAILY tamsulosin 0.4 mg Capsule 0.4 mg PO DAILY Qty: 60 2RF potassium chloride 20 mEq tablet,ER particles/crystals 20 meq PO DAILY Qty: 30 0RF ondansetron HCl 4 mg tablet 4 mg PO Q6H PRN (Reason: Nausea And Vomiting) zolpidem 5 mg tablet 5 mg PO BEDTIME escitalopram oxalate 10 mg tablet 10 mg PO DAILY Discharge Orders: Discharge ED (Routine); Ordered 06/15/25 Ordered By: Alberto Farmer Referrals: Ann Marie Maurer MD [Primary Care Provider, Family Practice] Patient Instructions: Opioid Safety, Pain Management, Patient Portal & Oc Instructions Activity Restrictions/Additional Instructions: [facility] you [facility] [place] [facility] your healthcare needs today. It is very important that you follow up as instructed or that you return to the Emergency Department should you have concerns or if your condition changes or worsens in any way. Emergency department visits are focused on emergent conditions, in some cases you may require further evaluation on an outpatient basis. You are seen emergency room after a fall. X-rays did not show any acute findings laboratory test done today did not show any significantly abnormal findings. Will discharge you home follow-up your primary care doctor. (Please note that included in your discharge packet is information concerning opioid safety and pain management. This information is given to all patients were discharged from the ER regardless of their discharge diagnosis or the medicines they usually take or are prescribed.) Print Language: Bengali Coding Level of Care Code ED General Passenger Agent for Triston Vasquez
[2025-06-15 15:26] VITALS: BP 130/80; PULSE 81; RESP 18; O2SAT 95
== END 2025-06-15 15:27 | disposition home or self-care (01) ==
PROVIDERS: Emergency Provider Family Medicine; PCP Family Medicine
DX: Z04.3 Encounter for examination and observation following other accident (principal); R53.1 Weakness; E78.5 Hyperlipidemia, unspecified; I10 Essential (primary) hypertension; J44.9 Chronic obstructive pulmonary disease, unspecified
CPT/HCPCS: 36415; 71045; 73562; 73610; 80053; 81001; 85025; 93005; 99285